=== PATIENT | male | born 1985 | race Caucasian/White ===

== ENCOUNTER 2023-05-04 07:14 | Outpatient (OUT) | payer OTHER, SELFPAY ==
[2023-05-05 04:07] LABS: Testosterone 181 ng/dL (264-916)
== END 2023-05-04 07:15 | disposition home or self-care (01) ==
LOC: LAB 07:21
PROVIDERS: PCP Family Medicine; Visit Provider Family Medicine
DX: E29.1 Testicular hypofunction (principal)
CPT/HCPCS: 36415; 84403

== ENCOUNTER 2023-07-11 08:06 | Outpatient (OUT) | payer OTHER, SELFPAY ==
[2023-07-12 04:07] LABS: Testosterone 387 ng/dL (264-916)
== END 2023-07-11 08:07 | disposition home or self-care (01) ==
LOC: LAB 08:09
PROVIDERS: PCP Family Medicine; Visit Provider Family Medicine
DX: E29.1 Testicular hypofunction (principal)
CPT/HCPCS: 36415; 84403

== ENCOUNTER 2023-12-19 12:13 | Outpatient (OUT) | payer OTHER, SELFPAY ==
[2023-12-21 12:10] LABS: Free Testosterone(Direct) 14.2 pg/mL (8.7-25.1); Testosterone 404 ng/dL (264-916)
== END 2023-12-19 12:14 | disposition home or self-care (01) ==
LOC: LAB 12:17
PROVIDERS: PCP Family Medicine; Visit Provider Family Medicine
DX: E29.1 Testicular hypofunction (principal)
CPT/HCPCS: 36415; 84402; 84403

== ENCOUNTER 2024-02-21 07:38 | Outpatient (OUT) | payer OTHER, SELFPAY ==
[2024-02-22 04:07] LABS: Testosterone 576 ng/dL (264-916)
== END 2024-02-21 07:39 | disposition home or self-care (01) ==
LOC: LAB 07:39
PROVIDERS: PCP Family Medicine; Visit Provider Family Medicine
DX: E29.1 Testicular hypofunction (principal)
CPT/HCPCS: 36415; 84403

== ENCOUNTER 2024-04-23 08:08 | Outpatient (OUT) | payer OTHER, SELFPAY ==
--- OUTSIDE RECORDS SUMMARY | 2024-04-23 08:17 | XMS_ITS | CCD ---
Author Organization [facility] Care Team Providers Care Taker Down Name Role Phone INDIRA, DR NAVAS Admitting Unavailable JESSY, DR NAVAS Attending Unavailable HOY, DR NAVAS Consulting Unavailable HOY, DR NAVAS Primary Care Unavailable JESSY, DR NAVAS Admitting Unavailable HOY, DR NAVAS Attending Unavailable HOY, DR NAVAS Consulting Unavailable JESSY, DR NAVAS Primary Care Unavailable ZIEBER, DR TIMOTHY El Consulting Unavailable JESSY, DR NAVAS Attending Unavailable HOY, DR NAVAS Consulting Unavailable DANETTE NORTON Primary Care Unavailable JESSY, DR NAVAS Admitting Unavailable HOY, DR NAVAS Admitting Unavailable HOY, DR NAVAS Attending Unavailable CIERRADANETTE DODSON Primary Care Unavailable Problems Active Problems Problem Classification Problem Date Documented Da te Episodic/Chronic Malaise and fatigue (1 source) Other fatigue; Translations: [OTHER FATIGUE] Onset: 05-24-2022 Episodic Other aftercare (1 source) Other mcfp (current) drug therapy; Translations: [OTH SHELTER CURRENT DRUG THERAPY] Onset: 05-24-2022 Episodic Other screening for suspected conditions (not mental disorders or infectious disease) (2 sources) Encounter for screening for malignant neoplasm of colon; Translations: [Encounter for screening for malignant neoplasm of prostate] Onset: 05-24-2022 Episodic Thyroid disorders (5 sources) Hypothyroidism, unspecified; Translations: [Nontoxic single thyroid nodule] Onset: 01-11-2022 Chronic Unclassified (2 sources) CONTACT W/AND (SUSP) EXPOS COVID-19; Translations: [CONTACT W/AND (SUSP) EXPOS COVID-19] Onset: 06-27-2021 Viral infection (1 source) COVID-19; Translations: [COVID-19] Onset: 06-27-2021 Past or Other Problems Problem Classification Problem Date Documented Da te Episodic/Chronic Unclassified (1 source) CONTACT W/AND (SUSP) EXPOS COVID-19; Translations: [CONTACT W/AND (SUSP) EXPOS COVID-19] Onset: 06-10-2021 Results Test Name Value Interpretation Reference Range Facility T4 [facility] 05-24-2022 T4 [Mass/Vol] 9.9 ug/dL Normal 4.5-12.0 [facility] Comment on above: Performed By: #### T 4LC #### [facility] [address] [place] [address] Dr. Vijay Pat CBC AUTO DIFFon 05-23-2022 BASO # 0.1 103/ul Normal 0.0-0.1 [facility] Comment on above: Performed By: #### C BC #### [facility] [address] [place] [address] Dr. Vijay Pat Basophils/100 WBC (Bld) 1.1 % Normal 0.2-2.0 [facility] Comment on above: Performed By: #### C BC #### [facility] [address] [place] [address] Dr. Vijay Pat EO # 0.2 103/ul Normal 0.0-0.7 [facility] Comment on above: Performed By: #### C BC #### [facility] [address] [place] [address] Dr. Vijay Pat Eosinophils/100 WBC (Bld) 2.4 % Normal 0.9-7.0 [facility] Comment on above: Performed By: #### C BC #### [facility] [address] [place] [address] Dr. Vijay Pat Erythrocyte distribution width (RBC) [Ratio] 12.3 % Normal 11.0-15.0 [facility] Comment on above: Performed By: #### C BC #### [facility] [address] [place] [address] Dr. Vijay Pat Hematocrit (Bld) [Volume fraction] 45.2 % Normal 42.0-54.0 [facility] Comment on above: Performed By: #### C BC #### [facility] [address] [place] [address] Dr. Vijay Pat Hemoglobin (Bld) [Mass/Vol] 15.3 g/dL Normal 14.0-18.0 [facility] Comment on above: Performed By: #### C BC #### [facility] [address] [place] [address] Dr. Vijay Pat IG # 0.03 10e3/ul Normal 0.00-0.03 [facility] Comment on above: Performed By: #### C BC #### [facility] [address] [place] [address] Dr. Vijay Pat IG % 0.4 % Normal 0.0-0.5 [facility] Comment on above: Performed By: #### C BC #### [facility] [address] [place] [address] Dr. Vijay Pat LYMPH # 1.6 103/ul Normal 1.2-3.8 [facility] Comment on above: Performed By: #### C BC #### [facility] [address] [place] [address] Dr. Vijay Pat Lymphocytes/100 WBC (Bld) 22.6 % Normal 20.5-60.0 [facility] Comment on above: Performed By: #### C BC #### [facility] [address] [place] [address] Dr. Vijay Pat MANUAL DIFF REQ NO Normal [facility] Comment on above: Performed By: #### C BC #### [facility] [address] [place] [address] Dr. Vijay Pat MCH (RBC) [Entitic mass] 30.8 pg Normal 25.9-34.0 [facility] Comment on above: Performed By: #### C BC #### [facility] [address] [place] [address] Dr. Vijay Pat MCHC (RBC) [Mass/Vol] 33.8 g/dL Normal 29.9-35.2 [facility] Comment on above: Performed By: #### C BC #### [facility] [address] [place] [address] Dr. Vijay Pat MCV (RBC) [Entitic vol] 90.9 fL Normal 80.0-94.0 [facility] Comment on above: Performed By: #### C BC #### [facility] [address] [address] [address] Vijay Pat MONO # 0.8 103/ul Normal 0.3-0.8 [facility] Comment on above: Performed By: #### C BC #### [facility] [address] [address] [address] Vijay Pat Monocytes/100 WBC (Bld) 12.0 % Normal 1.7-12.0 [facility] Comment on above: Performed By: #### C BC #### [facility] [address] [place] [address] Dr. Vijay Pat NEUT # 4.3 103/ul Normal 1.4-6.5 [facility] Comment on above: Performed By: #### C BC #### [facility] [address] [place] [address] Dr. Vijay Pat Neutrophils/100 WBC (Bld) 61.5 % Normal 43.0-75.0 [facility] Comment on above: Performed By: #### C BC #### [facility] [address] [place] [address] Dr. Vijay Pat Platelet mean volume (Bld) [Entitic vol] 10.3 fL Normal 9.5-13.5 [facility] Comment on above: Performed By: #### C BC #### [facility] [address] [place] [address] Dr. Vijay Pat PLT 246 103/ul Normal 150-450 [facility] Comment on above: Performed By: #### C BC #### [facility] [address] [place] [address] Dr. Vijay Pat RBC 4.97 106/ul Normal 4.70-6.10 [facility] Comment on above: Performed By: #### C BC #### [facility] [address] [place] [address] Dr. Vijay Pat WBC 7.0 103/ul Normal 4.0-11.0 [facility] Comment on above: Performed By: #### C BC #### [facility] [address] [address] [address] Vijay Pat FREE T3on 05-23-2022 FREE T3 2.93 pg/mlL Normal 2.18-3.98 [facility] Comment on above: Performed By: #### L IPID, CMP, FT3, TSH #### [facility] [address] [address] [address] Vijay Pat GLYCOHEMOGLOBIN A1Con 2021 ADA RECOMMENDATION SEE BELOW Normal [facility] Comment on above: Result Comment: ADA RECOMMENDED LIMIT 4.0 - 6.0 ADA THERAPEUTIC TARGET < 7.0 ACTION SUGGESTED > 7.0 Performed By: #### A 1C #### [facility] [address] [place] [address] Dr. Vijay Pat Glucose [Mass/Vol] 111 mg/dL Normal [facility] Comment on above: Performed By: #### A 1C #### [facility] [address] [place] [address] Dr. Vijay Pat HbA1c (Bld) [Mass fraction] 5.5 % Normal 4.5-6.2 [facility] Comment on above: Performed By: #### A 1C #### [facility] [address] [place] [address] Dr. Vijay Pat LIPID PROFILEon 05-23-2022 CHOL-HDL RATIO NORM SEE BELOW Normal [facility] Comment on above: Result Comment: 3.3 - 4.4 LOW RISK 4.4 - 7.1 AVERAGE RISK 7.1 - 11.0 MODERATE RISK >11.0 HIGH RISK Performed By: #### L IPID, CMP, FT3, TSH #### [facility] [address] [place] [address] Dr. Vijay Pat Cholesterol [Mass/Vol] 180 mg/dL Normal <=200 [facility] Comment on above: Performed By: #### L IPID, CMP, FT3, TSH #### [facility] [address] [address] [address] Vijay Pat Cholesterol in HDL [Mass/Vol] 35 mg/dL Critically low 40-60 [facility] Comment on above: Performed By: #### L IPID, CMP, FT3, TSH #### [facility] [address] [address] [address] Vijay Pat Cholesterol in LDL [Mass/Vol] 128.4 mg/dL Normal [facility] Comment on above: Performed By: #### L IPID, CMP, FT3, TSH #### [facility] [address] [address] [address] Vijay Pat Cholesterol.total/Ch olesterol in HDL [Mass ratio] 5.1 {ratio} Normal [facility] Comment on above: Performed By: #### L IPID, CMP, FT3, TSH #### [facility] [address] [address] [address] Vijay Pat HDL NORMAL > or = 60 mg/dl - LOW CARDIOVASCULAR RISK <40 mg/dl - HIGH CARDIOVASCULAR RISK Normal [facility] Comment on above: Performed By: #### L IPID, CMP, FT3, TSH #### [facility] [address] [address] [address] Vijay Pat LDL CALC NORMAL SEE BELOW Normal [facility] Comment on above: Result Comment: <100 mg/dl OPTIMAL 100 - 129 mg/dl NEAR OR ABOVE OPTIMAL 130 - 159 mg/dl BORDERLINE HIGH 160 - 189 mg/dl HIGH >190 mg/dl VERY HIGH Performed By: #### L IPID, CMP, FT3, TSH #### [facility] [address] [address] [address] Vijay Pat Triglyceride [Mass/Vol] 83 mg/dL Normal <=150 [facility] Comment on above: Performed By: #### L IPID, CMP, FT3, TSH #### [facility] [address] [address] [address] Vijay Pat VLDL CALC 16.6 mg/dL Normal [facility] Comment on above: Performed By: #### L IPID, CMP, FT3, TSH #### [facility] [address] [address] [address] Vijay Pat PROF 14(COMP METB)on 022 Albumin [Mass/Vol] 4.1 g/dL Normal 3.4-5.0 [facility] Comment on above: Performed By: #### L IPID, CMP, FT3, TSH #### [facility] [address] [place] [address] Dr. Vijay Pat Albumin/Globulin [Mass ratio] 1.1 {ratio} Normal [facility] Comment on above: Performed By: #### L IPID, CMP, FT3, TSH #### [facility] [address] [place] [address] Dr. Vijay Pat ALP [Catalytic activity/Vol] 83 U/L Normal 46-116 [facility] Comment on above: Performed By: #### L IPID, CMP, FT3, TSH #### [facility] [address] [place] [address] Dr. Vijay Pat ALT [Catalytic activity/Vol] 41 U/L Normal 16-63 [facility] Comment on above: Performed By: #### L IPID, CMP, FT3, TSH #### [facility] [address] [place] [address] Dr. Vijay Pat Anion gap [Moles/Vol] 13.4 mmol/L Normal [facility] Comment on above: Performed By: #### L IPID, CMP, FT3, TSH #### [facility] [address] [place] [address] Dr. Vijay Pat AST [Catalytic activity/Vol] 36 U/L Normal 15-37 [facility] Comment on above: Performed By: #### L IPID, CMP, FT3, TSH #### [facility] [address] [place] [address] Dr. Vijay Pat Bilirubin [Mass/Vol] 0.3 mg/dL Normal 0.2-1.0 [facility] Comment on above: Performed By: #### L IPID, CMP, FT3, TSH #### [facility] [address] [place] [address] Dr. Vijay Pat Calcium [Mass/Vol] 8.8 mg/dL Normal 8.5-10.1 [facility] Comment on above: Performed By: #### L IPID, CMP, FT3, TSH #### [facility] [address] [place] [address] Dr. Vijay Pat Chloride [Moles/Vol] 100 mmol/L Normal 98-107 [facility] Comment on above: Performed By: #### L IPID, CMP, FT3, TSH #### [facility] [address] [place] [address] Dr. Vijay Pat CO2 [Moles/Vol] 26.8 mmol/L Normal 21.0-32.0 [facility] Comment on above: Performed By: #### L IPID, CMP, FT3, TSH #### [facility] [address] [place] [address] Dr. Vijay Pat Creatinine [Mass/Vol] 1.05 mg/dL Normal 0.70-1.30 [facility] Comment on above: Performed By: #### L IPID, CMP, FT3, TSH #### [facility] [address] [place] [address] Dr. Vijay Pat EGFR-AF IRANIAN >60 Normal >=60 [facility] Comment on above: Performed By: #### L IPID, CMP, FT3, TSH #### [facility] [address] [place] [address] Dr. Vijay Pat EGFR-NON AF IRANIAN >60 Normal >=60 [facility] Comment on above: Performed By: #### L IPID, CMP, FT3, TSH #### [facility] [address] [place] [address] Dr. Vijay Pat Globulin (S) [Mass/Vol] 3.7 g/dL Normal [facility] Comment on above: Performed By: #### L IPID, CMP, FT3, TSH #### [facility] [address] [place] [address] Dr. Vijay Pat Glucose [Mass/Vol] 107 mg/dL Critically high 74-106 T [facility] Comment on above: Performed By: #### L IPID, CMP, FT3, TSH #### [facility] [address] [place] [address] Dr. Vijay Pat Potassium [Moles/Vol] 4.2 mmol/L Normal 3.5-5.1 [facility] Comment on above: Performed By: #### L IPID, CMP, FT3, TSH #### [facility] [address] [address] [address] Vijay Pat Protein [Mass/Vol] 7.8 g/dL Normal 6.4-8.2 [facility] Comment on above: Performed By: #### L IPID, CMP, FT3, TSH #### [facility] [address] [address] [address] Vijay Pat Sodium [Moles/Vol] 136 mmol/L Normal 136-145 [facility] Comment on above: Performed By: #### L IPID, CMP, FT3, TSH #### [facility] [address] [place] [address] Dr. Vijay Pat Urea nitrogen [Mass/Vol] 19.0 mg/dL Critically high 7.0-18.0 [facility] Comment on above: Performed By: #### L IPID, CMP, FT3, TSH #### [facility] [address] [address] [address] Vijay Pat Urea nitrogen/Creatinine [Mass ratio] 18.1 mg/mg Normal [facility] Comment on above: Performed By: #### L IPID, CMP, FT3, TSH #### [facility] [address] [address] [address] Vijay Pat TSHon 05-23-2022 TSH 1.295 uIU/mL Normal 0.358-3.740 [facility] Comment on above: Performed By: #### L IPID, CMP, FT3, TSH #### [facility] [address] [address] [address] Vijay Pat US THYROIDon 01-11-2022 US THYROID EXAMINATION: US THYROID HISTORY: Uninodular goiter COMPARISON: Ultrasound thyroid 01/19/2021 FINDINGS: RIGHT LOBE: Heterogeneous echotexture. Lobe size: 5.0 x 1.9 x 1.5 cm LEFT LOBE: Heterogeneous echotexture containing a 6 mm TR 3 nodule within the mid body. Lobe size: 4.2 x 2.0 x 1.3 cm. ISTHMUS: Heterogeneous echotexture and prominent thickening. Stable 5 mm TR 4 nodule left margin. Thickness: 7 mm IMPRESSION: 1. Heterogeneous thyroid gland with stable small left lobe and isthmus nodule; present since at least 2017. TR 4: The [employer] TI-RADS committee's white paper recommendations for thyroid lesions classified as TR4 (moderately suspicious) are listed below: > 1.0 cm. Follow-up ultrasound in 1, 2, 3, and 5 years. > 1.5 cm. FNA. J. Am Geovany Radiol 2017;14:587-595. TR 3: The [employer] TI-RADS committee's white paper recommendations for thyroid lesions classified as TR3 (mildly suspicious) are listed below: > 1.5 cm. Follow-up ultrasound in 1, 3, and 5 years. > 2.5 cm. FNA. J. [employer] Radiol 2017;14:587-595. Electronically authenticated by: TIMOTHY MCGINNIS Date: 2022-01-11 16:25 Normal [facility] Covid-19 PCR (CVDTBH)on 05-26 SARS-CoV-2 (COVID-19) RNA KIMBERLY+probe Ql (Unsp spec) Detected Critically abnormal NOT DETECTED [facility] Comment on above: Result Comment: This test is not yet approved or cleared by the [place] FDA. When there are no FDA-approved or cleared tests available, and other criteria are met, FDA can make tests available under an emergency access mechanism called an Emergency Use Authorization (EUA). The EUA for this test is supported by the [place] of Health and Human Service's (HHS's) declaration that circumstances exist to justify the emergency use of in vitro diagnostics for the detection and/or diagnosis of the virus that causes COVID-19. This EUA will remain in effect (meaning this test can be used) for the duration of the COVID-19 declaration justifying emergency of IVDs, unless it is terminated or revoked by FDA (after which the test may no longer be used). Performed By: #### C VDTB, CVDAGS #### [facility] [address] [place] [address] Dr. Vijay Pat SYMPTOMATIC COVID-19 ANTIGEN on 06-10-2021 EUA Statement SEE BELOW Normal [facility] Comment on above: Result Comment: This test has not been FDA cleared or approved, but has been authorized by the FDA under an Emergency Use Authorization (EUA) for use by authorized laboratories certified under CLIA that meet the requirements to perform moderate or high complexity testing. This test has been authorized only for the detection of proteins from SARS-CoV-2, not for any other viruses or pathogens. The emergency use of this test is authorized for the duration of the declaration that circumstances exist justifying the authorization of emergency use of in vitro diagnostic tests for detection and/or diagnosis of Covid-19 under section 564(b)(1) of the Act, 21 U.S.C. 360bbb-3(b)(1), unless the declaration is terminated or authorization is revoked sooner. Performed By: #### C VDTBRiley, CVDAGS #### [facility] [address] [place] [address] Dr. Vijay Pat SARS-CoV-2 (COVID-19) RNA KIMBERLY+probe Ql (Unsp spec) Positive Critically abnormal NEGATIVE [facility] Comment on above: Result Comment: CONF IRMATION BY PCR PENDING PER CDC GUIDELINES/ SYMPTOMATIC PATIENT. Previously reported as: NEGATIVE On 06/10/2021 14:38 By [email or web address] Performed By: #### C VDTBH, CVDAGS #### [facility] [address] [address] [address] Vijay Pat Encounters Encounter Date Encounter Type Care Provider Facility Start: 05-24-2022 Encounter for genera l adult medical examination without abnormal findings DR YOSEF JACOBSON [facility] Start: 05-23-2022 End: 05-24-[address] YOSEF JACOBSON Facility:[facility] Start: 05-23-2022 End: 05-24-2022 Encounter for general adult medical examination without abnormal findings DR YOSEF JACOBSON Facility:[facility] Start: 01-14-[address] YOSEF JACOBSON Facility :[facility] Start: 01-11-2022 End: 01-12-[address] YOSEF JACOBSON Facility:[facility] Start: 06-10-2021 End: 09-16-[address] YOSEF JACOBSON Facility:[facility] Procedures Date Procedure Procedure Detail Performing Clinician Start: 05-23-[address] RENETTA JACOBSON Comment on above: Performed By: #### L IPID, CMP, FT3, TSH #### [facility] [id number] Vijay Pat Payers Date Payer Category Payer Unknown [id number] 2.16.84 [id number] 1984 Unknown [id number] 2.16.84 [id number] 1984 Unknown [id number] 2.16.84 [id number] 1984 Unknown [id number] 2.16.84 [id number] 1960 Private Health Insurance [id number] 1960 Self-pay [id number] 1960 Unknown [id number] Summary Purpose Family History No Family History Records Found Advance Directives No Advanced Directives Records Found Additional Source Comments (unrecognized sect ion and content) No Status Records Found INFORMATION SOURCE (unrecogn ized section and content) DATE CREATED AUTHOR 05/25/2022 [facility] FOR RECORDS PERTAINING TO PATIENTS WHO ARE OR HAVE BEEN ENROLLED IN A CHEMICAL DEPENDENCY/SUBSTANCEABUSE PROGRAM, SOME INFORMATION MAY BE OMITTED. This clinical summary was aggregated from multiple sources. Caution should be exercised in using it in the provision of clinical care. This summary normalizes information from multiple sources, and as a consequence, information in this document may materially change the coding, format and clinical context of patient data. In addition, data may be omitted in some cases. CLINICAL DECISIONS SHOULD BE BASED ON THE PRIMARY CLINICAL RECORDS. [employer] provides no warranty or guarantee of the accuracy or completeness of information in this document.
[2024-04-23 08:54] LABS: Basophils Absolute Auto 0.1 10^3/uL (0.0-0.1); Basophils Percent Auto 1.2 % (0.2-2.0); Eosinophils Absolute Auto 0.1 10^3/uL (0.0-0.7); Hematocrit 51.8 % (42.0-54.0); Hemoglobin 17.5 g/dL (14.0-18.0); Immature Granulocytes Abs Auto 0.06 10^3/uL (0.00-0.03); Immature Granulocytes Pct Auto 0.8 % (0.0-0.5); Lymphocytes Absolute Auto 1.4 10^3/uL (1.2-3.8); Lymphocytes Percent Auto 17.4 % (20.5-60.0); Mean Corpuscular HGB Conc 33.8 g/dL (29.9-35.2); Mean Corpuscular Volume 91.7 fL (80.0-94.0); Monocytes Absolute Auto 0.8 10^3/uL (0.3-0.8); Monocytes Percent Auto 10.1 % (1.7-12.0); Neutrophils Absolute Auto 5.4 10^3/uL (1.4-6.5); Neutrophils Percent Auto 69.5 % (43.0-75.0); Platelet Count 252 10^3/uL (150-450); Red Blood Count 5.65 10^6/uL (4.70-6.10); Red Cell Distribution Width 13.3 % (11.0-15.0); White Blood Count 7.8 10^3/uL (4.0-11.0)
[2024-04-23 09:20] LABS: Estimated Average Glucose 100 mg/dL; Glycohemoglobin A1C 5.1 % (4.5-6.2)
[2024-04-23 09:36] LABS: Alanine Aminotransferase 54 U/L (16-63); Albumin Globulin Ratio 1.1; Alkaline Phosphatase 66 U/L (46-116); Anion Gap 12.2; Aspartate Amino Transferase 48 U/L (15-37); BUN Creatinine Ratio 13.9; Bilirubin Total 0.8 mg/dL (0.2-1.0); Carbon Dioxide 26.8 mmol/L (21.0-32.0); Chloride 99 mmol/L (98-107); Chol HDL Ratio 4.1; Cholesterol 151 mg/dL (<=200); Estimated GFR (African America >60 (>=60); Estimated GFR (Non-African Ame >60 (>=60); Free T3 2.79 pg/mL (2.18-3.98); Free T4 1.12 ng/dL (0.76-1.46); Globulin 3.5 g/dL; Glucose 95 mg/dL (74-106); HDL Cholesterol 37 mg/dL (40-60); Sodium 134 mmol/L (136-145); Thyroid Stimulating Hormone 2.157 uIU/mL (0.358-3.740); Total Protein 7.5 g/dL (6.4-8.2); Triglycerides 93 mg/dL (<=150); VLDL CHOLESTEROL 18.6 mg/dL
== END 2024-04-23 08:09 | disposition home or self-care (01) ==
LOC: LAB 08:08
PROVIDERS: PCP Family Medicine; Visit Provider Family Medicine
DX: Z00.00 Encounter for general adult medical examination without abnormal findings (principal); E03.9 Hypothyroidism, unspecified; I10 Essential (primary) hypertension
CPT/HCPCS: 36415; 80053; 80061; 83036; 84439; 84443; 84481; 85025

== ENCOUNTER 2024-08-27 08:31 | Outpatient (OUT) | payer OTHER, SELFPAY ==
--- OUTSIDE RECORDS SUMMARY | 2024-08-27 08:51 | XMS_ITS | CCD ---
Author Organization [facility] Care Team Providers Care Diving Fisher Name Role Phone INDIRA, DR NAVAS Admitting Unavailable HOY, DR NAVAS Attending Unavailable HOY, DR NAVAS Consulting Unavailable HOY, DR NAVAS Primary Care Unavailable HOY, DR NAVAS Admitting Unavailable HOY, DR NAVAS Attending Unavailable HOY, DR NAVAS Consulting Unavailable JESSY, DR NAVAS Primary Care Unavailable ZIEBER, DR TIMOTHY El Consulting Unavailable JESSY, DR NAVAS Attending Unavailable HOY, DR NAVAS Consulting Unavailable CIERRADANETTE DODSON Primary Care Unavailable JESSY, DR NAVAS Admitting Unavailable HOY, DR NAVAS Admitting Unavailable HOY, DR NAVAS Attending Unavailable CIERRADANETTE DODSON Primary Care Unavailable Solomon CRONIN Attending Unavailable Solomon CRONIN Attending Unavailable Yosef Jacobson Referring Unavailable Problems Active Problems Problem Classification Problem Date Documented Da te Episodic/Chronic Malaise and fatigue (1 source) Other fatigue; Translations: [OTHER FATIGUE] Onset: 05-24-2022 Episodic Other aftercare (1 source) Other fdc (current) drug therapy; Translations: [OTH USP CURRENT DRUG THERAPY] Onset: 05-24-2022 Episodic Other [...] 05-24-2022 T4 [Mass/Vol] 9.9 ug/dL Normal 4.5-12.0 [facility] Comment on above: Performed By: #### T 4LC #### [facility] [address] [place] [address] Dr. Vijay Pat CBC AUTO DIFFon 05-23-2022 BASO # 0.1 103/ul Normal 0.0-0.1 [facility] Comment on above: Performed By: #### C BC #### [facility] [address] [place] [address] Dr. Vijay Pat Basophils/100 WBC (Bld) 1.1 % Normal 0.2-2.0 [facility] Comment on above: Performed By: #### C BC #### [facility] [address] [place] [address] Dr. Vijay Pat EO # 0.2 103/ul Normal 0.0-0.7 [facility] Comment on above: Performed By: #### C BC #### [facility] [address] [place] [address] Dr. Vijay Pat Eosinophils/100 WBC (Bld) 2.4 % Normal 0.9-7.0 [facility] Comment on above: Performed By: #### C BC #### [facility] [address] [place] [address] Dr. Vijay Pat Erythrocyte distribution width (RBC) [Ratio] 12.3 % Normal 11.0-15.0 [facility] Comment on above: Performed By: #### C BC #### [facility] [address] [place] [address] Dr. Vijay Pat Hematocrit (Bld) [Volume fraction] 45.2 % Normal 42.0-54.0 [facility] Comment on above: Performed By: #### C BC #### [facility] [address] [place] [address] Dr. Vijay aPt Hemoglobin (Bld) [Mass/Vol] 15.3 g/dL Normal 14.0-18.0 [facility] Comment on above: Performed By: #### C BC #### [facility] [address] [place] [address] Dr. Vijay Pat IG # 0.03 10e3/ul Normal 0.00-0.03 [facility] Comment on above: Performed By: #### C BC #### [facility] [address] [place] [address] Dr. Vijay Pat IG % 0.4 % Normal 0.0-0.5 [facility] Comment on above: Performed By: #### C BC #### [facility] [address] [place] [address] Dr. Vijay Pat LYMPH # 1.6 103/ul Normal 1.2-3.8 [facility] Comment on above: Performed By: #### C BC #### [facility] [address] [place] [address] Dr. Vijay Pat Lymphocytes/100 WBC (Bld) 22.6 % Normal 20.5-60.0 [facility] Comment on above: Performed By: #### C BC #### [facility] [address] [place] [address] Dr. Vijay Pat MANUAL DIFF REQ NO Normal [facility] Comment on above: Performed By: #### C BC #### [facility] [address] [place] [address] Dr. Vijay Pat MCH (RBC) [Entitic mass] 30.8 pg Normal 25.9-34.0 [facility] Comment on above: Performed By: #### C BC #### [facility] [address] [place] [address] Dr. Vijay Pat MCHC (RBC) [Mass/Vol] 33.8 g/dL Normal 29.9-35.2 [facility] Comment on above: Performed By: #### C BC #### [facility] [address] [place] [address] Dr. Vijay Pat MCV (RBC) [Entitic vol] 90.9 fL Normal 80.0-94.0 [facility] Comment on above: Performed By: #### C BC #### [facility] [address] [place] [address] Dr. Vijay Pat MONO # 0.8 103/ul Normal 0.3-0.8 [facility] Comment on above: Performed By: #### C BC #### [facility] [address] [place] [address] Dr. Vijay Pat Monocytes/100 WBC (Bld) 12.0 % Normal 1.7-12.0 [facility] Comment on above: Performed By: #### C BC #### [facility] [address] [place] [address] Dr. Vijay Pat NEUT # 4.3 103/ul Normal 1.4-6.5 [facility] Comment on above: Performed By: #### C BC #### [facility] [address] [place] [address] Dr. Vijay Pat Neutrophils/100 WBC (Bld) 61.5 % Normal 43.0-75.0 [facility] Comment on above: Performed By: #### C BC #### [facility] [address] [place] [address] Dr. Vijay Pat Platelet mean volume (Bld) [Entitic vol] 10.3 fL Normal 9.5-13.5 [facility] Comment on above: Performed By: #### C BC #### [facility] [address] [place] [address] Dr. Vijay Pat PLT 246 103/ul Normal 150-450 [facility] Comment on above: Performed By: #### C BC #### [facility] [address] [place] [address] Dr. Vijay Pat RBC 4.97 106/ul Normal 4.70-6.10 [facility] Comment on above: Performed By: #### C BC #### [facility] [address] [place] [address] Dr. Vijay Pat WBC 7.0 103/ul Normal 4.0-11.0 [facility] Comment on above: Performed By: #### C BC #### [facility] [address] [address] [address] Vijay Pat FREE T3on 05-23-2022 FREE T3 2.93 pg/mlL Normal 2.18-3.98 [facility] Comment on above: Performed By: #### L IPID, CMP, FT3, TSH #### [facility] [address] [address] [address] Vijay Pat GLYCOHEMOGLOBIN A1Con 2021 ADA RECOMMENDATION SEE BELOW Normal [facility] Comment on above: Result Comment: ADA RECOMMENDED LIMIT 4.0 - 6.0 ADA THERAPEUTIC TARGET < 7.0 ACTION SUGGESTED > 7.0 Performed By: #### A 1C #### [facility] [address] [place] [address] Dr. Vijay Pat Glucose [Mass/Vol] 111 mg/dL Normal [facility] Comment on above: Performed By: #### A 1C #### [facility] [address] [address] [address] Vijay Pat HbA1c (Bld) [Mass fraction] 5.5 % Normal 4.5-6.2 [facility] Comment on above: Performed By: #### A 1C #### [facility] [address] [place] [address] Dr. Vijay Pat LIPID PROFILEon 05-23-2022 CHOL-HDL RATIO NORM SEE BELOW Normal [facility] Comment on above: Result Comment: 3.3 - 4.4 LOW RISK 4.4 - 7.1 AVERAGE RISK 7.1 - 11.0 MODERATE RISK >11.0 HIGH RISK Performed By: #### L IPID, CMP, FT3, TSH #### [facility] [address] [address] [address] Vijay Pat Cholesterol [Mass/Vol] 180 mg/dL Normal <=200 [facility] Comment on above: Performed By: #### L IPID, CMP, FT3, TSH #### [facility] [address] [address] [address] Vijay Pat Cholesterol in HDL [Mass/Vol] 35 mg/dL Critically low 40-60 [facility] Comment on above: Performed By: #### L IPID, CMP, FT3, TSH #### [facility] [address] [address] [address] Vijay Pat Cholesterol in LDL [Mass/Vol] 128.4 mg/dL Normal [facility] Comment on above: Performed By: #### L IPID, CMP, FT3, TSH #### [facility] [address] [address] [address] Vijay Pat Cholesterol.total/Ch olesterol in HDL [Mass ratio] 5.1 {ratio} Normal [facility] Comment on above: Performed By: #### L IPID, CMP, FT3, TSH #### [facility] [address] [place] [address] Dr. Vijay Pat HDL NORMAL > or = 60 mg/dl - LOW CARDIOVASCULAR RISK <40 mg/dl - HIGH CARDIOVASCULAR RISK Normal [facility] Comment on above: Performed By: #### L IPID, CMP, FT3, TSH #### [facility] [address] [place] [address] Dr. Vijay Pat LDL CALC NORMAL SEE BELOW Normal [facility] Comment on above: Result Comment: <100 mg/dl OPTIMAL 100 - 129 mg/dl NEAR OR ABOVE OPTIMAL 130 - 159 mg/dl BORDERLINE HIGH 160 - 189 mg/dl HIGH >190 mg/dl VERY HIGH Performed By: #### L IPID, CMP, FT3, TSH #### [facility] [address] [address] [address] Vijay Pat Triglyceride [Mass/Vol] 83 mg/dL Normal <=150 [facility] Comment on above: Performed By: #### L IPID, CMP, FT3, TSH #### [facility] [address] [place] [address] Dr. Vijay Pat VLDL CALC 16.6 mg/dL Normal [facility] Comment on above: Performed By: #### L IPID, CMP, FT3, TSH #### [facility] [address] [place] [address] Dr. Vijay Pat PROF 14(COMP METB)on 022 Albumin [Mass/Vol] 4.1 g/dL Normal 3.4-5.0 [facility] Comment on above: Performed By: #### L IPID, CMP, FT3, TSH #### [facility] [address] [address] [address] Vijay Pat Albumin/Globulin [Mass ratio] 1.1 {ratio} Normal [facility] Comment on above: Performed By: #### L IPID, CMP, FT3, TSH #### [facility] [address] [address] [address] Vijay Pat ALP [Catalytic activity/Vol] 83 U/L Normal 46-116 [facility] Comment on above: Performed By: #### L IPID, CMP, FT3, TSH #### [facility] [address] [place] [address] Dr. Vijay Pat ALT [Catalytic activity/Vol] 41 U/L Normal 16-63 [facility] Comment on above: Performed By: #### L IPID, CMP, FT3, TSH #### [facility] [address] [address] [address] Vijay Pat Anion gap [Moles/Vol] 13.4 mmol/L Normal [facility] Comment on above: Performed By: #### L IPID, CMP, FT3, TSH #### [facility] [address] [place] [address] Dr. Vijay Pat AST [Catalytic activity/Vol] 36 U/L Normal 15-37 [facility] Comment on above: Performed By: #### L IPID, CMP, FT3, TSH #### [facility] [address] [address] [address] Vijay Pat Bilirubin [Mass/Vol] 0.3 mg/dL Normal 0.2-1.0 [facility] Comment on above: Performed By: #### L IPID, CMP, FT3, TSH #### [facility] [address] [address] [address] Vijay Pat Calcium [Mass/Vol] 8.8 mg/dL Normal 8.5-10.1 [facility] Comment on above: Performed By: #### L IPID, CMP, FT3, TSH #### [facility] [address] [address] [address] Vijay Pat Chloride [Moles/Vol] 100 mmol/L Normal 98-107 [facility] Comment on above: Performed By: #### L IPID, CMP, FT3, TSH #### [facility] [address] [place] [address] Dr. Vijay Pat CO2 [Moles/Vol] 26.8 mmol/L Normal 21.0-32.0 [facility] Comment on above: Performed By: #### L IPID, CMP, FT3, TSH #### [facility] [address] [place] [address] Dr. Vijay Pat Creatinine [Mass/Vol] 1.05 mg/dL Normal 0.70-1.30 [facility] Comment on above: Performed By: #### L IPID, CMP, FT3, TSH #### [facility] [address] [place] [address] Dr. Vijay Pat EGFR-AF MOZAMBICAN >60 Normal >=60 [facility] Comment on above: Performed By: #### L IPID, CMP, FT3, TSH #### [facility] [address] [place] [address] Dr. Viajy Pat EGFR-NON AF MOZAMBICAN >60 Normal >=60 [facility] Comment on above: Performed By: #### L IPID, CMP, FT3, TSH #### [facility] [address] [place] [address] Dr. Vijay Pat Globulin (S) [Mass/Vol] 3.7 g/dL Normal [facility] Comment on above: Performed By: #### L IPID, CMP, FT3, TSH #### [facility] [address] [place] [address] Dr. Vijay Pat Glucose [Mass/Vol] 107 mg/dL Critically high 74-106 [facility] Comment on above: Performed By: #### L IPID, CMP, FT3, TSH #### [facility] [address] [address] [address] Vijay Pat Potassium [Moles/Vol] 4.2 mmol/L Normal 3.5-5.1 [facility] Comment on above: Performed By: #### L IPID, CMP, FT3, TSH #### [facility] [address] [place] [address] Dr. Vijay Pat Protein [Mass/Vol] 7.8 g/dL Normal 6.4-8.2 [facility] Comment on above: Performed By: #### L IPID, CMP, FT3, TSH #### [facility] [address] [place] [address] Dr. Vijay Pat Sodium [Moles/Vol] 136 mmol/L Normal 136-145 [facility] Comment on above: Performed By: #### L IPID, CMP, FT3, TSH #### [facility] [address] [place] [address] Dr. Vijay Pat Urea nitrogen [Mass/Vol] 19.0 mg/dL Critically high 7.0-18.0 [facility] Comment on above: Performed By: #### L IPID, CMP, FT3, TSH #### [facility] [address] [place] [address] Dr. Vijay Pat Urea nitrogen/Creatinine [Mass ratio] 18.1 mg/mg Normal [facility] Comment on above: Performed By: #### L IPID, CMP, FT3, TSH #### [facility] [address] [place] [address] Dr. Vijay Pat TSHon 05-23-2022 TSH 1.295 uIU/mL Normal 0.358-3.740 [facility] Comment on above: Performed By: #### L IPID, CMP, FT3, TSH #### [facility] [address] [place] [address] Dr. Vijay Pat US THYROIDon 01-11-2022 US [...] since at least 2017. TR 4: The [employer] TI-RADS committee's white paper recommendations for thyroid lesions classified as TR4 (moderately suspicious) are listed below: > 1.0 cm. Follow-up ultrasound in 1, 2, 3, and 5 years. > 1.5 cm. FNA. J. Am Geovany Radiol 2017;14:587-595. TR 3: The [employer] TI-RADS committee's white paper recommendations for thyroid lesions classified as TR3 (mildly suspicious) are listed below: > 1.5 cm. Follow-up ultrasound in 1, 3, and 5 years. > 2.5 cm. FNA. J. Am Geovany Radiol 2017;14:587-595. Electronically authenticated by: TIMOTHY MCGINNIS Date: 2022-01-11 16:25 Normal [facility] Covid-19 PCR (CVDTBH)on 05-26 SARS-CoV-2 (COVID-19) RNA KIMBERLY+probe Ql (Unsp spec) Detected Critically abnormal NOT DETECTED [facility] Comment on above: Result Comment: This test is not yet approved or cleared by the [place] FDA. When there are no FDA-approved or cleared tests available, and other criteria are met, FDA can make tests available under an emergency access mechanism called an Emergency Use Authorization (EUA). The EUA for this test is supported by the [place] of Health and Human Service's (HHS's) declaration [...] Performed By: #### C VDTB, CVDAGS #### [facility] [address] [address] [address] Vijay Pat SYMPTOMATIC COVID-19 ANTIGEN on 06-10-2021 EUA Statement SEE BELOW Normal [facility] Comment on above: Result Comment: This [...] is revoked sooner. Performed By: #### C JENELLE, ANKUSH #### [facility] [address] [place] [address] Dr. Vijay Pat SARS-CoV-2 (COVID-19) RNA KIMBERLY+probe Ql (Unsp spec) Positive Critically abnormal NEGATIVE [facility] Comment on above: Result Comment: CONF IRMATION BY PCR PENDING PER CDC GUIDELINES/ SYMPTOMATIC PATIENT. Previously reported as: NEGATIVE On 06/10/2021 14:38 By [email or web address] Performed By: #### C JENELLE, JEREMYS #### [facility] [address] [address] [address] Vijay Pat Encounters Encounter Date Encounter Type Care Provider Facility Start: 09-30-2024 ambulatory Solomon CRONIN Facili ty:[facility] Start: 08-12-2024 End: 08-12-2024 ambulatory Solomon CRONIN Facility:[facility] Start: 08-12-2024 End: 08-12-2024 Patient encounter procedure Solomon CRONIN [facility] Start: 07-03-2024 ambulatory Solomon CRONIN Facility :[facility] Start: 05-24-2022 Encounter for genera l adult medical examination without abnormal findings DR YOSEF JACOBSON [facility] Start: 05-23-2022 End: 05-24-[address] YOSEF JACOBSON Facility:[facility] Start: 05-23-2022 End: 05-24-2022 Encounter for general adult medical examination without abnormal findings DR YOSEF JACOBSON Facility:[facility] Start: 01-14-[address] YOSEF JACOBSON Facility :[facility] Start: 01-11-2022 End: 01-12-[address] YOSEF JACOBSON Facility:[facility] Start: 06-10-2021 End: 06-10-[address] YOSEF JACOBSON Facility:[facility] Procedures Date Procedure Procedure Detail Performing Clinician Start: 05-23-[address] RENETTA JACOBSON Comment on above: Performed By: #### L IPID, CMP, FT3, TSH #### [facility] [address] [address] [address] Vijay Pat Payers Date Payer Category Payer Unknown [id number] 2.16.84 [id number] 1984 Unknown [id number] 2.16.84 [id number] 1984 Unknown [id number] 2.16.84 [id number] 1984 Unknown [id number] 2.16.84 [id number] 1960 Private Health Insurance [id number] 1960 Self-pay [id number] 1960 Unknown [id number] Social History Date Type Detail Facility Tobacco smoking status No Smoking Status Entered [facility] Sex Assigned At Male [facility] Discharge instructions 07-03-2024 Note Date & Type Note Facility 07-03-2024 Hospital Discharg e instructions Follow Up Care 07/03/2024 15:50:59 With:ROSEANNE GUTIERREZ, Solomon El, URL Address: [facility] [address], [place] [phone] When: Unknown [facility] Evaluation + Plan note Note Date & Type Note Facility Evaluation + Plan note No data available for this section [facility] Progress note Note Date & Type Note Facility Progress note No data available for this section [facility] Summary Purpose Family History No Family History Records Found No data available for this section No Family History Records Found Advance Directives No Advanced Directives Records FoundNo Advanced Directives Records Found Additional Source Comments (unrecognized sect ion and content) No Status Records FoundNo Status Records Found INFORMATION SOURCE (unrecogn ized section and content) DATE CREATED AUTHOR 05/25/2022 [facility] DATE CREATED AUTHOR AUTHOR'S ORGANIZ ATION 08/15/2024 [facility] FOR RECORDS PERTAINING TO PATIENTS WHO [...] BE BASED ON THE PRIMARY CLINICAL RECORDS. [facility] [employer] [facility]. provides no warranty or guarantee of the accuracy or completeness of information in this document.
== END 2024-08-27 08:32 | disposition home or self-care (01) ==
LOC: LAB 08:34
PROVIDERS: PCP Family Medicine; Visit Provider Family Medicine
DX: E29.1 Testicular hypofunction (principal)
CPT/HCPCS: 36415; 84402; 84403

== ENCOUNTER 2025-02-04 08:21 | Outpatient (OUT) | payer OTHER, SELFPAY ==
--- OUTSIDE RECORDS SUMMARY | 2025-02-04 08:30 | XMS_ITS | CCD ---
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 Role Phone INDIRA, DR NAVAS Admitting Unavailable HOY, DR NAVAS Attending Unavailable HOY, DR NAVAS Consulting Unavailable HOY, DR NAVAS Primary Care Unavailable HOY, DR NAVAS Admitting Unavailable HOY, DR NAVAS Attending Unavailable HOY, DR NAVAS Consulting Unavailable HOY, DR NAVAS Primary Care Unavailable ZIEBER, DR TIMOTHY El Consulting Unavailable HOY, DR NAVAS Attending Unavailable HOY, DR NAVAS Consulting Unavailable CIERRADANETTE Primary Care Unavailable HOY, DR NAVAS Admitting Unavailable HOY, DR NAVAS Admitting Unavailable HOY, DR NAVAS Attending Unavailable CIERRADANETTE Primary Care Unavailable Yosef Jacobson Referring Unavailable Solomon CRONIN Attending Unavailable Solomon CRONIN Attending Unavailable Problems Active Problems Problem Classification Problem Date Documented Da te Episodic/Chronic Malaise and fatigue (1 source) Other fatigue; Translations: [OTHER FATIGUE] Onset: 05-24-2022 Episodic Other aftercare (1 source) Other group home (current) drug therapy; Translations: [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 [address] [place] [address] Dr. Vijay Pat CBC AUTO DIFFon 05-23-2022 BASO # 0.1 103/ul Normal 0.0-0.1 [facility] Comment on above: Performed By: #### C BC #### [facility] [address] [place] [address] Dr. Vijay Pat Basophils/100 WBC (Bld) 1.1 % Normal 0.2-2.0 [facility] Comment on above: Performed By: #### C BC #### [facility] [address] [place] [address] Dr. Vijay Pat EO # 0.2 103/ul Normal 0.0-0.[address] [facility] Comment on above: Performed By: #### C BC #### [facility] [address] [place] [address] Dr. Vijay Pat Eosinophils/100 WBC (Bld) 2.4 % Normal 0.9-7.[address] [facility] Comment on above: Performed By: #### C BC #### [facility] [address] [place] [address] Dr. Vijay Pat Erythrocyte distribution width (RBC) [Ratio] 12.3 % Normal 11.0-15.[address] [facility] Comment on above: Performed By: #### C BC #### [facility] [address] [place] [address] Dr. Vijay Pat Hematocrit (Bld) [Volume fraction] 45.2 % Normal 42.0-54.0 [facility] Comment on above: Performed By: #### C BC #### [facility] [address] [place] [address] Dr. Vijay Pat Hemoglobin (Bld) [Mass/Vol] 15.3 g/dL Normal 14.0-18.[address] [facility] Comment on above: Performed By: #### C BC #### [facility] [address] [place] [address] Dr. Vijay Pat IG # 0.03 10e3/ul Normal 0.00-0.03 [facility] Comment on above: Performed By: #### C BC #### [facility] [address] [place] [address] Dr. Vijay Pat IG % 0.4 % Normal 0.0-0.5 [facility] Comment on above: Performed By: #### C BC #### [facility] [address] [place] [address] Dr. Vijay Pat LYMPH # 1.6 103/ul Normal 1.2-3.[address] [facility] Comment on above: Performed By: #### C BC #### [facility] [address] [place] [address] Dr. Vijay Pat Lymphocytes/100 WBC (Bld) 22.6 % Normal 20.5-60.0 [facility] Comment on above: Performed By: #### C BC #### [facility] [address] [place] [address] Dr. Vijay Pat MANUAL DIFF REQ NO Normal [facility] Comment on above: Performed By: #### C BC #### [facility] [address] [place] [address] Dr. Vijay Pat MCH (RBC) [Entitic mass] 30.8 pg Normal 25.9-34.[address] [facility] Comment on above: Performed By: #### C BC #### [facility] [address] [place] [address] Dr. Vijay Pat MCHC (RBC) [Mass/Vol] 33.8 g/dL Normal 29.9-35.[address] [facility] Comment on above: Performed By: #### C BC #### [facility] [address] [place] [address] Dr. Vijay Pat MCV (RBC) [Entitic vol] 90.9 fL Normal 80.0-94.0 [facility] Comment on above: Performed By: #### C BC #### [facility] [address] [place] [address] Dr. Vijay Pat MONO # 0.8 103/ul Normal 0.3-0.[address] [facility] Comment on above: Performed By: #### C BC #### [facility] [address] [place] [address] Dr. Vijay Pat Monocytes/100 WBC (Bld) 12.0 % Normal 1.7-12.0 [facility] Comment on above: Performed By: #### C BC #### [facility] [address] [place] [address] Dr. Vijay Pat NEUT # 4.3 103/ul Normal 1.4-6.5 [facility] Comment on above: Performed By: #### C BC #### [facility] [address] [place] [address] Dr. Vijay Pat Neutrophils/100 WBC (Bld) 61.5 % Normal 43.0-75.0 [facility] Comment on above: Performed By: #### C BC #### [facility] [address] [place] [address] Dr. Vijay Pat Platelet mean volume (Bld) [Entitic vol] 10.3 fL Normal 9.5-13.[address] [facility] Comment on above: Performed By: #### C BC #### [facility] [address] [place] [address] Dr. Vijay Pat PLT 246 103/ul Normal 150-[address] [facility] Comment on above: Performed By: #### C BC #### [facility] [address] [place] [address] Dr. Vijay Pat RBC 4.97 106/ul Normal 4.70-6.[address] [facility] Comment on above: Performed By: #### C BC #### [facility] [address] [place] [address] Dr. Vijay Pat WBC 7.0 103/ul Normal 4.0-11.0 [facility] Comment on above: Performed By: #### C BC #### [facility] [address] [address] [address] Vijay Pat FREE T3on 05-23-2022 FREE T3 2.93 pg/mlL Normal 2.18-3.98 [facility] Comment on above: Performed By: #### L IPID, CMP, FT3, TSH #### [facility] [address] [address] [address] Vijay Pat GLYCOHEMOGLOBIN A1Con 2021 ADA RECOMMENDATION SEE BELOW Normal [facility] Comment on above: Result Comment: ADA RECOMMENDED LIMIT 4.0 - 6.0 ADA THERAPEUTIC TARGET < 7.0 ACTION SUGGESTED > 7.0 Performed By: #### A 1C #### [facility] [address] [place] [address] Dr. Vijay Pat Glucose [Mass/Vol] 111 mg/dL Normal [facility] Comment on above: Performed By: #### A 1C #### [facility] [address] [place] [address] Dr. Vijay Pat HbA1c (Bld) [Mass fraction] 5.5 % Normal 4.5-6.2 [facility] Comment on above: Performed By: #### A 1C #### [facility] [address] [place] [address] Dr. Vijay Pat LIPID PROFILEon 05-23-2022 CHOL-HDL RATIO NORM SEE BELOW Normal [facility] Comment on above: Result Comment: 3.3 - 4.4 LOW RISK 4.4 - 7.1 AVERAGE RISK 7.1 - 11.0 MODERATE RISK >11.0 HIGH RISK Performed By: #### L IPID, CMP, FT3, TSH #### [facility] [address] [place] [address] Dr. Vijay Pat Cholesterol [Mass/Vol] 180 mg/dL Normal <=200 [facility] Comment on above: Performed By: #### L IPID, CMP, FT3, TSH #### [facility] [address] [place] [address] Dr. Vijay Pat Cholesterol in HDL [Mass/Vol] 35 mg/dL Critically low 40-[address] [facility] Comment on above: Performed By: #### L IPID, CMP, FT3, TSH #### [facility] [address] [address] [address] Vijay Pat Cholesterol in LDL [Mass/Vol] 128.4 mg/dL Normal [facility] Comment on above: Performed By: #### L IPID, CMP, FT3, TSH #### [facility] [address] [address] [address] Vijay Pat Cholesterol.total/Ch olesterol in HDL [Mass ratio] 5.1 {ratio} Normal [facility] Comment on above: Performed By: #### L IPID, CMP, FT3, TSH #### [facility] [address] [address] [address] Vijay Pat HDL NORMAL > or = 60 mg/dl - LOW CARDIOVASCULAR RISK <40 mg/dl - HIGH CARDIOVASCULAR RISK Normal [facility] Comment on above: Performed By: #### L IPID, CMP, FT3, TSH #### [facility] [address] [address] [address] Vijay Pat LDL CALC NORMAL SEE BELOW Normal [facility] Comment on above: Result Comment: <100 mg/dl OPTIMAL 100 - 129 mg/dl NEAR OR ABOVE OPTIMAL 130 - 159 mg/dl BORDERLINE HIGH 160 - 189 mg/dl HIGH >190 mg/dl VERY HIGH Performed By: #### L IPID, CMP, FT3, TSH #### [facility] [address] [address] [address] Vijay Pat Triglyceride [Mass/Vol] 83 mg/dL Normal <=[address] [facility] Comment on above: Performed By: #### L IPID, CMP, FT3, TSH #### [facility] [address] [address] [address] Vijay Pat VLDL CALC 16.6 mg/dL Normal [facility] Comment on above: Performed By: #### L IPID, CMP, FT3, TSH #### [facility] [address] [address] [address] Vijay Pat PROF 14(COMP METB)on 022 Albumin [Mass/Vol] 4.1 g/dL Normal 3.4-5.0 [facility] Comment on above: Performed By: #### L IPID, CMP, FT3, TSH #### [facility] [address] [address] [address] Vijay Pat Albumin/Globulin [Mass ratio] 1.1 {ratio} Normal [facility] Comment on above: Performed By: #### L IPID, CMP, FT3, TSH #### [facility] [address] [place] [address] Dr. Vijay Pat ALP [Catalytic activity/Vol] 83 U/L Normal 46-116 [facility] Comment on above: Performed By: #### L IPID, CMP, FT3, TSH #### [facility] [address] [place] [address] Dr. Vijay Pat ALT [Catalytic activity/Vol] 41 U/L Normal 16-63 [facility] Comment on above: Performed By: #### L IPID, CMP, FT3, TSH #### [facility] [address] [address] [address] Vijay Pat Anion gap [Moles/Vol] 13.4 mmol/L Normal [facility] Comment on above: Performed By: #### L IPID, CMP, FT3, TSH #### [facility] [address] [place] [address] Dr. Vijay Pat AST [Catalytic activity/Vol] 36 U/L Normal 15-37 [facility] Comment on above: Performed By: #### L IPID, CMP, FT3, TSH #### [facility] [address] [address] [address] Vijay Pat Bilirubin [Mass/Vol] 0.3 mg/dL Normal 0.2-1.0 [facility] Comment on above: Performed By: #### L IPID, CMP, FT3, TSH #### [facility] [address] [place] [address] Dr. Vijay Pat Calcium [Mass/Vol] 8.8 mg/dL Normal 8.5-10.1 [facility] Comment on above: Performed By: #### L IPID, CMP, FT3, TSH #### [facility] [address] [address] [address] Vijay Pat Chloride [Moles/Vol] 100 mmol/L Normal 98-107 [facility] Comment on above: Performed By: #### L IPID, CMP, FT3, TSH #### [facility] [address] [address] [address] Vijay Pat CO2 [Moles/Vol] 26.8 mmol/L Normal 21.0-32.0 [facility] Comment on above: Performed By: #### L IPID, CMP, FT3, TSH #### [facility] [address] [place] [address] Dr. Vijay Pat Creatinine [Mass/Vol] 1.05 mg/dL Normal 0.70-1.30 [facility] Comment on above: Performed By: #### L IPID, CMP, FT3, TSH #### [facility] [address] [place] [address] Dr. Vijay Pat EGFR-AF IRISH >60 Normal >=60 [facility] Comment on above: Performed By: #### L IPID, CMP, FT3, TSH #### [facility] [address] [place] [address] Dr. Vijay Pat EGFR-NON AF IRISH >60 Normal >=60 [facility] Comment on above: Performed By: #### L IPID, CMP, FT3, TSH #### [facility] [address] [place] [address] Dr. Vijay Pat Globulin (S) [Mass/Vol] 3.7 g/dL Normal [facility] Comment on above: Performed By: #### L IPID, CMP, FT3, TSH #### [facility] [address] [place] [address] Dr. Vijay Pat Glucose [Mass/Vol] 107 mg/dL Critically high 74-106 [facility] Comment on above: Performed By: #### L IPID, CMP, FT3, TSH #### [facility] [address] [place] [address] Dr. Vijay Pat Potassium [Moles/Vol] 4.2 mmol/L Normal 3.5-5.1 [facility] Comment on above: Performed By: #### L IPID, CMP, FT3, TSH #### [facility] [address] [place] [address] Dr. Vijay Pat Protein [Mass/Vol] 7.8 g/dL Normal 6.4-8.2 [facility] Comment on above: Performed By: #### L IPID, CMP, FT3, TSH #### [facility] [address] [place] [address] Dr. Vijay Pat Sodium [Moles/Vol] 136 mmol/L Normal 136-145 [facility] Comment on above: Performed By: #### L IPID, CMP, FT3, TSH #### [facility] [address] [place] [address] Dr. Vijay Pat Urea nitrogen [Mass/Vol] 19.0 mg/dL Critically high 7.0-18.0 [facility] Comment on above: Performed By: #### L IPID, CMP, FT3, TSH #### [facility] [address] [place] [address] Dr. Vijay Pat Urea nitrogen/Creatinine [Mass ratio] 18.1 mg/mg Normal [facility] Comment on above: Performed By: #### L IPID, CMP, FT3, TSH #### [facility] [address] [place] [address] Dr. Vijay Pat TSHon 05-23-2022 TSH 1.295 uIU/mL Normal 0.358-3.740 [facility] Comment on above: Performed By: #### L IPID, CMP, FT3, TSH #### [facility] [address] [place] [address] Dr. Vijay Pat US THYROIDon 01-11-2022 US [...] and isthmus nodule; present since at least 2016. TR 4: The [employer] TI-RADS committee's white paper recommendations for thyroid lesions classified as TR4 (moderately suspicious) are listed below: > 1.0 cm. Follow-up ultrasound in 1, 2, 3, and 5 years. > 1.5 cm. FNA. J. Am Geovany Radiol 2017;14:587-595. TR 3: The [employer] TI-RADS committee's white paper recommendations for thyroid lesions classified as TR3 (mildly suspicious) are listed below: > 1.5 cm. Follow-up ultrasound in 1, 3, and 5 years. > 2.5 cm. FNA. J. Am Geovany Radiol 2017;14:587-595. Electronically authenticated by: TIMOTHY MCGINNIS Date: 2022-01-11 16:[address] [facility] Covid-19 PCR ([facility])on 05-26 SARS-CoV-2 (COVID-19) RNA KIMBERLY+probe Ql (Unsp spec) Detected Critically abnormal NOT DETECTED [facility] Comment on above: Result Comment: This test is not yet approved or cleared by the [place] FDA. When there are no FDA-approved or cleared tests available, and other criteria are met, FDA can make tests available under an emergency access mechanism called an Emergency Use Authorization (EUA). The EUA for this test is supported by the [employer] Worker of Health and Human Service's (HHS's) declaration [...] Performed By: #### C VDTB, CVDAGS #### [facility] [address] [address] [address] Vijay Pat SYMPTOMATIC COVID-19 ANTIGEN on 06-10-2021 EUA Statement SEE BELOW Normal [facility] Comment on above: Result Comment: This test [...] revoked sooner. Performed By: #### C JENELLE, JEREMYS #### [facility] [address] [place] [address] Dr. Vijay Pat SARS-CoV-2 (COVID-19) RNA KIMBERLY+probe Ql (Unsp spec) Positive Critically abnormal NEGATIVE [facility] Comment on above: Result Comment: CONF IRMATION BY PCR PENDING PER CDC GUIDELINES/ SYMPTOMATIC PATIENT. Previously reported as: NEGATIVE On 06/10/2021 14:38 By [email or web address] Performed By: #### C JENELLE, JEREMYS #### [facility] [address] [place] [address] Dr. Vijay Pat Encounters Encounter Date Encounter Type Care Provider Facility Start: 09-30-2024 End: 09-30-2024 ambulatory Solomon CRONIN Facility:[facility] Start: 09-30-2024 End: 09-30-2024 Patient encounter procedure Solomon CRONIN [facility] Start: 08-12-2024 End: 08-12-2024 ambulatory Yosef Jacobson Facility:[facility] Start: 08-12-2024 End: 08-12-2024 Patient encounter procedure Solomon CRONIN [facility] Start: 07-03-2024 ambulatory Yosef Jacobson Facility:[facility] [place] Start: 05-24-2022 Encounter for genera l adult medical examination without abnormal findings DR YOSEF JACOBSON [facility] Start: 05-23-2022 End: 05-24-[address] [...] #### L IPID, CMP, FT3, TSH #### [facility] [address] [address] [address] Vijay Pat Payers Date Payer Category Payer Unknown [id number] 2.16.84 [id number] 1984 Unknown [id number] 2.16.84 [id number] 1984 Unknown [id number] 2.16.84 [id number] 1984 Unknown [id number] 2.16.84 [id number] 1984 Unknown [id number] 2.16.8 [id number] 1959 Private Health Insurance [id number] 1960 Self-pay [id number] 1960 Unknown [id number] Social History Date Type Detail Facility Tobacco smoking status No Smoking Status Entered [facility] ROI² Sex Assigned At Male [facility] Hospital Discharge instructions 07-03-2024 Note Date & Type Note Facility 07-03-2024 Hospital Discharg e instructions Follow Up Care 07/03/2024 15:50:59 With:ROSEANNE GUTIERREZ, Solomon El, URL Address: [facility] [address], [place] [address] [phone] When: Unknown [facility] Evaluation + Plan note Note Date & Type Note Facility Evaluation + Plan note No data available for this section [facility] Hospital Discharge instructions Note Date & Type Note Facility Hospital Discharge instructions No data available for this section [facility] Progress note Note Date & Type Note Facility Progress note No data available for this section [facility] Summary Purpose Family History No Family History Records Found No data available for this section No data available for this section No Family History Records Found Advance Directives No Advanced Directives Records FoundNo Advanced Directives Records Found Additional Source Comments (unrecognized sect ion and content) No Status Records FoundNo Status Records Found INFORMATION SOURCE (unrecogn ized section and content) DATE CREATED AUTHOR 05/25/[address] [facility] DATE CREATED AUTHOR AUTHOR'S ORGANIZ ATION 10/05/2024 [facility] FOR RECORDS PERTAINING TO PATIENTS WHO [...] BE BASED ON THE PRIMARY CLINICAL RECORDS. [facility] [email or web address]. provides no warranty or guarantee of the accuracy or completeness of information in this document.
[2025-02-05 04:07] LABS: Testosterone 924 ng/dL (264-916)
== END 2025-02-04 08:22 | disposition home or self-care (01) ==
LOC: LAB 08:23
PROVIDERS: PCP Family Medicine; Visit Provider Family Medicine
DX: E29.1 Testicular hypofunction (principal)
CPT/HCPCS: 36415; 84403

== ENCOUNTER 2025-02-14 08:59 | Outpatient (OUT) | payer OTHER, SELFPAY ==
--- OUTSIDE RECORDS SUMMARY | 2024-09-30 11:00 | XMS_ITS ---
Author Name Auto Generated Organization [facility] Care Team Providers Care Eye Care Professional Name Role Phone Ernie Ascencio Referring Unavailable Solomon CRONIN Attending Unavailable Solomon CRONIN Attending Unavailable PROBLEMS No Problem Records Found PROCEDURES No Procedure Records Found RESULTS No Result Records Found ALLERGIES No Allergies Records Found ENCOUNTERS ADMIT/DISCHARGE ACCOUNT NUMBER ADMITTING ENCOUNTER CLASS LOC ATION SOURCE 09/30/2024/ 5 [id number] [facility] 08/12/2024/ 4 [id number] [facility] [place] 07/03/2024 [id number] [facility] [place] PAYERS ENCOUNTER GUARANTOR PAYER SUBSCRIBER SOURCE 09/30/2024 MIKKI HERNANDEZDOB: [id number] [facility] 148Tel: [phone] Primary Insurance:MEDICAL MUTUALPolicy Number: [id number] Date:[id number] [address]ZX: MIKKI KEY [facility]
--- OUTSIDE RECORDS SUMMARY | 2025-02-04 05:15 | XMS_ITS ---
Author Organization [facility] [place] Address [address] [place] [address] Care Team Providers Care Retail Business Development Manager Name Role Phone Sonu Hola Primary Care Provider REASON FOR VISIT testosterone Encounters Encounter Location Date Provider Diagnosis [facility] [address] [place] [address] 02/04/2025 Hola Ascencio Testicular hypofunct ion E29.1 Assessments Encounter Date Diagnosis (ICD Code) Assessment Notes Treatment Notes Treatment Clinical Notes Section Notes 02/04/2025 Testicular hypofunction (ICD-10 - E29.1) Plan Of Treatment Next Appt Details Provider Name:Hola Ascencio, 09:00:00 AM, [address] [place], [address], Medications Administered Medication Instructions Date of Administration Dosage Notes Testosterone Cypionate 02/04/2025 0.8 mL Progress Notes * DAVID Demetrius ADOB:[birth year] (39 yo M)Acc No.[id number]:02/04/2025 Progress Note Patient: Demetrius GARCIA Provider: Yessica Ascencio ([facility])MD :1985 A ge:39 Y S ex:Male Date:02/04/2025 Phone: Address:[address] [place] [address]-[phone] Check In:08:39 AM ESTCheck O ut:08:57 AM EST Subjective: * Chief Complaints: * T estosterone * Active Problem List R00.0 Tachycardia, unspeci fied Modified On:02/09/2023 Status:confirmed R51 Headache Modified On:02/14/2023 Status:confirmed E03.9 Hypothyroid Modified On:02/09/2023 Status:confirmed R53.82 Chronic fatigue Modified On:02/09/2023 Status:confirmed R63.5 Weight gain Modified On:02/14/2023 Status:confirmed J20.9 Acute bronchitis Modified On:02/14/2023 Status:confirmed I10 Essential (primary) hypertension Modified On:02/09/2023 Status:confirmed 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 T esticular hypofunction - E29.1 (Primary) Plan: * Treatment: * Therapeutic Injections: Testosterone Cypionate 200mg : 0.8 mL (Route: Intramuscular) given by Bessie Monique SA on left gluteus (Testicular hypofunction) * Procedure Codes: 9 [id number] THERAP.INJ. OF MED. INTRAMUSCULAR OR [id number] TESTOST CYPIONATE 1MG * * Sign off status: Completed Visit Status: C HK (Check Out) true * Provider: Yessica Ascencio (TTC)MD Date: 0 02/04/2025 Generated for Jakob hassan/Tmoasz/Luis on: 0 02/14/2025 09:01 AM EDT
--- OUTSIDE RECORDS SUMMARY | 2025-02-05 14:37 | XMS_ITS ---
Author Organization [facility] [place] Address [address] [place] [address] Care Team Providers Care Talent Acquisition Lead Name Role Phone Hola Ascencio Primary Care Provider [phone] REASON FOR VISIT testosterone lab Medications Medication SIG (Take, Route, Frequency, Duration) Notes Start Date End Date Status Testosterone Cypionate 200 MG/ML INJECT 0.7 ML INTRAMUSCULARLY ONCE WEEKLY FOR 28 DAYS for 28 days 01/21/2025 Active Encounters Encounter Location Date Provider Diagnosis [facility] [address] [place] [address] 02/05/2025 Hola Ascencio Plan Of Treatment Medication Medication Name Sig Start Date Stop Date Notes Testosterone Cypionate 200 MG/ML INJECT 0.7 ML INTRAMUSCULARLY ONCE WEEKLY FOR 28 DAYS for 28 days 01/21/2025 Next Appt Details Provider Name:Hola Carrizales Sonu, 09:00:00 AM, [address] [place], [address], Progress Notes * Demetrius HERNANDEZ ADOB:[birth year] (39 yo M)Acc No.[id number]:02/05/2025 Patient: Davis GARCIADemetrius QUINTERO :1985 A ge:39 Y S ex:Male Phone: [facility] [facility] [address] [address] [address] * Refills Refill Testosterone Cypionate Solution, 200 MG/ML, INJECT 0.7 ML INTRAMUSCULARLY ONCE WEEKLY FOR 28 DAYS, 28 days, Refills=0 * true * Date: Generated for Jakob hassan/Tomasz/Luis on: 0 02/14/2025 09:01 AM EDT
--- OUTSIDE RECORDS SUMMARY | 2025-02-14 09:01 | XMS_ITS | Patient Health Record ---
Author Organization The [facility] in [place] Address [address] [place] [address] Care Team Providers Care Co Chairman Name Role Phone Hola Jacobson Primary Care Provider [phone] YOSEF JACOBSON Unavailable [phone] Allergies Allergen (clinical drug ingredient) Drug/Non Drug Allergy documented on EMR Reaction Allergy Type Onset Date Status codeine Codeine anaphylaxis Drug Allergy Activ e Results Component Value Reference Range Notes CBC AUTO DIFF Reviewed date:04/23/2024 06:18:55 PM Interpretation: Performing Lab: Notes/Report: [facility] , White Blood Count 7.8 4.0-11.0 10 3/uL Red Blood Count 5.65 4.70-6.10 10 6/uL Hemoglobin 17.5 14.0-18.0 g/dL Hematocrit 51.8 42.0-54.0 % Mean Corpuscular Volume 91.7 80.0-94.0 fL Mean Corpuscular Hemoglobin 31.0 25.9-34.0 pg Mean Corpuscular HGB Conc 33.8 29.9-35.2 g/dL Red Cell Distribution Width 13.3 11.0-15.0 % Platelet Count 252 150-450 10 3/uL Mean Platelet Volume 11.0 9.5-13.5 fL Neutrophils Percent Auto 69.5 43.0-75.0 % Lymphocytes Percent Auto 17.4 20.5-60.0 % Monocytes Percent Auto 10.1 1.7-12.0 % Eosinophils Percent Auto 1.0 0.9-7.0 % Basophils Percent Auto 1.2 0.2-2.0 % Immature Granulocytes Pct Auto 0.8 0.0-0.5 % Neutrophils Absolute Auto 5.4 1.4-6.5 10 3/uL Lymphocytes Absolute Auto 1.4 1.2-3.8 10 3/uL Monocytes Absolute Auto 0.8 0.3-0.8 10 3/uL Eosinophils Absolute Auto 0.1 0.0-0.7 10 3/uL Basophils Absolute Auto 0.1 0.0-0.1 10 3/uL Immature Granulocytes Abs Auto 0.06 0.00-0.03 10 3/uL Performing Lab: see note ML - [facility] LB Testosterone Reviewed date:02/05/2025 06:57:42 PM Interpretation: Performing Lab: Notes/Report: [facility] , Testosterone 924 264-916 ng/dL Adult male reference interval is based on a population of healthy nonobese males (BMI <30) between 19 and 39 years old. tran Grigsby.al. JCEM 2017,102;0282-3905. PMID: [id number]. Performed at: - [address] [id number] Property Condition Assessor: Robbi Carbajal PhD, Phone: [phone] Performing Lab: see note - [facility] LB TSH Reviewed date:04/23/2024 06:18:55 PM Interpretation: Performing Lab: Notes/Report: [facility] , Thyroid Stimulating Hormone 2.157 0.358-3.740 u IU/mL Performing Lab: see note - [facility] LB PROF 14(COMP METB) Reviewed date:04/23/2024 06:18:55 PM Interpretation: Performing Lab: Notes/Report: [facility] , Sodium 134 136-145 mmol/L Potassium 4.0 3.5-5.1 mmol/L Chloride 99 98-107 mmol/L Carbon Dioxide 26.8 21.0-32.0 mmol/L Anion Gap 12.2 Glucose 95 74-106 mg/dL Blood Urea Nitrogen 15.0 7.0-18.0 mg/dL Creatinine 1.08 0.70-1.30 mg/dL Estimated GFR ( Aviva >60 >=60 Estimated GFR (Non- Whitney >60 >=60 BUN Creatinine Ratio 13.9 Calcium 9.0 8.5-10.1 mg/dL Bilirubin Total 0.8 0.2-1.0 mg/dL Aspartate Amino Transferase 48 15-37 U/L Alanine Aminotransferase 54 16-63 U/L Alkaline Phosphatase 66 46-116 U/L Total Protein 7.5 6.4-8.2 g/dL Albumin Level 4.0 3.4-5.0 g/dL Globulin 3.5 Albumin Globulin Ratio 1.1 Performing Lab: see note ML - [facility] LB LIPID PROFILE Reviewed date:04/23/2024 06:18:55 PM Interpretation: Performing Lab: Notes/Report: [facility] , Triglycerides 93 <=150 mg/dL Cholesterol 151 <=200 mg/dL HDL Cholesterol 37 40-60 mg/dL > or =60 mg/dl - LOW CARDIOVASCULAR RISK <40 mg/dl - HIGH CARDIOVASCULAR RISK LDL Cholesterol Calculated 96.0 <100 mg/dl OPTIMAL 100-129 mg/dl NEAR OR ABOVE OPTIMAL 130-159 mg/dl BORDERLINE HIGH 160-189 mg/dl HIGH >190 mg/dl VERY HIGH VLDL CHOLESTEROL 18.6 Chol HDL Ratio 4.1 3.3 - 4.4 LOW RISK 4.4 - 7.1 AVERAGE RISK 7.1 - 11.0 MODERATE RISK >11.0 HIGH RISK Performing Lab: see note ML - [facility] FREE T4 Reviewed date:04/23/2024 06:18:55 PM Interpretation: Performing Lab: Notes/Report: [facility] , Free T4 1.12 0.76-1.46 ng/dL Performing Lab: see note ML - [facility] FREE T3 Reviewed date:04/23/2024 06:18:55 PM Interpretation: Performing Lab: Notes/Report: [facility] , Free T3 2.79 2.18-3.98 pg/mL Performing Lab: see note ML - [facility] LB Testosterone Reviewed date:02/22/2024 09:58:50 PM Interpretation: Performing Lab: [facility]Report: [facility] , Testosterone 576 264-916 ng/dL Adult male reference interval is based on a population of healthy nonobese males (BMI <30) between 19 and 39 years old. tran Grigsby.al. JCEM 2017,102;4409-7194. PMID: [id number]. Performed at: [address] [id number] Property Condition Assessor: Robbi Carbajal PhD, Phone: [phone] Performing Lab: see note [facility] LAB TESTING Reviewed date:09/01/2024 06:03:40 PM Interpretation: Performing Lab: Notes/Report: [id number] TESTOSTERONE FREE,DIRECT W/ TOTAL [facility] , Miscellaneous Test COMMENT . Test Ordered: [id number] Testosterone, Free+Total LC/MS Testosterone, Total, LC/MS 995.3 [H ] ng/dL Reference Range: 264.0-916.0 This [facility] LC/MS-MS method is currently certified by the CDC Hormone Standardization Program (HoSt). Adult male reference interval is based on a population of healthy nonobese males (BMI <30) between 19 and 39 years old. tran Grigsby.al. JCEM 2017,102;2891-9203. PMID: [id number]. This test was developed and its performance characteristics determined by [facility]. It has not been cleared or approved by the Food and Drug Administration. Free Testosterone(Direct) 33.9 [H ] pg/mL Reference Range: 8.7-25.1 Performed at: - [address] [id number] Property Condition Assessor: Viri Thurston MD, Phone: [phone] Performed at: [address] [id number] Property Condition Assessor: Robbi Carbajal PhD, Phone: [phone] Performing Lab: see note [facility] GLYCOHEMOGLOBIN A1C Reviewed date:04/23/2024 06:18:55 PM Interpretation: Performing Lab: Notes/Report: [facility] , Glycohemoglobin A1C 5.1 4.5-6.2 % ADA RECOMMENDED LIMIT 4.0 - 6.0 ADA THERAPEUTIC TARGET < 7.0 ACTION SUGGESTED > 7.0 Estimated Average Glucose 100 Performing Lab: see note - [facility] Reason For Referral Diagnosis 1 Encounter for other general counseling and advice on contraception (Z30.09) Referral Organization [facility] Referring Provider First Name Hola Referring Provider Last Name Sonu Referring Provider Speciality Family Med richy Referred Provider Solomon Schmid Referred Provider Specialty Urology Referral Priority Routine Medications Medication SIG (Take, Route, Frequency, Duration) Notes Start Date End Date Status hydroCHLOROthiazide 25 MG TAKE 1 TABLET BY MOUTH EVERY DAY IN THE MORNING FOR 90 DAYS for 90 Active Testosterone Cypionate 200 MG/ML INJECT 0.7 ML INTRAMUSCULARLY ONCE WEEKLY FOR 28 DAYS Q Week for 28 days 02/11/2025 Active Levothyroxine Sodium 150 MCG TAKE 1 TABL ET BY MOUTH EVERY DAY IN THE MORNING ON EMPTY STOMACH FOR 90 DAYS for 90 Active Lisinopril 40 MG TAKE 1 TABLET BY PALAK TH EVERY DAY FOR 90 DAYS for 90 Active Blood Pressure Monitor - as directed PRN Active Social History Tobacco Use: Social History Observation Description Date Details (start date - stop date) Never Smoker NA - NA Tobacco Use/Smoking Question Answer Notes Patient is a nonsmoker Alcohol Screen (Audit-C) Question Answer Notes Did you have a drink containing alcohol in the p ast year? No Points 0 Interpretation Negative AUDIT-C (Standard) Question Answer Notes Did you have a drink contain ing alcohol in the past year? Yes How often did you have six o r more drinks on one occasion in the past year? Less than monthly (1 point) How many drinks did you have on a typical day when you were drinking in the past year? 1 or 2 drinks (0 point) How often did you have a dri nk containing alcohol in the past year? Monthly or less (1 point) Points 2 Interpretation Negative Problems Problem Type SNOMED Code ICD Code Onset Dates Problem Status W/U Status Risk Notes Problem Essential hypertension (59127429) Essential (primary) hypertension (I10) Active confirmed Problem Non-toxic single thyroid nodule (829580709) Nontoxic single thyroid nodule (E04.1) Active confirmed Problem 460593005 Testicular hypofunction (E29.1) Active confirmed Problem Tachycardia (7550068) Tachycardia, unspecified (R00.0) Active confirmed Problem Headache (57934139) Headache (R51) Active confirmed Problem Hypothyroid (65323412) Hypothyroid (E03.9) Active confirmed Problem Chronic fatigue syndrome (92847584) Chronic fatigue (R53.82) Active confirmed Problem Weight gain (401975369) Weight gain (R63.5) Active confirmed Problem Acute bronchitis (31707534) Acute bronchitis (J20.9) Active confirmed Problem Well adult (889012994) Well adult (Z00.00) Active confirmed Problem Obese class II (968205860171324) BMI 38.0-38.9,adult (Z68.38) Active confirmed Problem Concussion with no loss of consciousness (disorder) (50231725) Concussion without loss of consciousness (S06.0X0A) Active confirmed Problem Disease caused by Severe acute respiratory syndrome coronavirus 2 (disorder) (377781065) COVID-19 virus infection (U07.1) Active confirmed Vital Signs Blood pressure diastolic 90 mm Hg 02/11/2025 Height 72 in 02/11/2025 Blood pressure systolic 122 mm Hg 02/11/2025 Weight 284.0 lbs 02/11/2025 BMI 38.51 kg/m2 02/11/2025 Encounters Encounter Location Date Provider Diagnosis [facility] [address] [place] [address] 10/08/2024 Hola [facility] [address] [place] [address] 11/12/2024 Hola deon [facility] [address] [facility] [place] [address] 12/17/2024 Hola Jacobson [facility] [address] [facility] [place] [address] 01/21/2025 Hola Jacobson [facility] [address] [facility] [place] [address] 01/28/2025 Hola Jacobson Testicular hypofunct ion E29.1 [facility] [address] [place] [address] 02/05/2025 Hola Jacobson [facility] [address] [facility] [place] [address] 03/27/2024 YOSEF JACOBSON [facility] [address] [facility] [place] [address] 04/23/2024 Hola Jacobson [facility] [address] [facility] [place] [address] 06/04/2024 Hola [facility] [address] [facility] [place] [address] 07/03/2024 Hola Jacobson Encounter for other general counseling and advice on contraception Z30.09 [facility] [address] [facility] [place] [address] 08/06/2024 Hola Hoy [facility] [address] [facility] [place] [address] 09/01/2024 Hola Hoy Testicular hypofunct ion E29.1 [facility] [address] [place] [address] 02/20/2024 YOSEF HOY Testicular hypofunct ion E29.1 [facility] [address] [facility] [place] [address] 02/22/2024 YOSEF HOY [facility] [address] [place] [address] 02/28/2024 YOSEF HOY [facility] [address] [place] [address] 03/22/2024 YOSEF HOY Wellness examination Z01.89 ; Hypothyroid E03.9 and Essential (primary) hypertension I10 [facility] [address] [facility] [place] [address] 12/17/2024 Hola Hoy Testicular hypofunct ion E29.1 [facility] [address] [place] [address] 02/28/2024 YOSEF HOY Well adult Z00.00 an d Testicular hypofunction E29.1 [facility] [address] [facility] [place] [address] 08/20/2024 Hola Hoy Testicular hypofunct ion E29.1 [facility] [address] [facility] [place] [address] 02/11/2025 Hola Hoy Testicular hypofunct ion E29.1 ; Hypothyroid E03.9 and Well adult Z00.00 [facility] [address] [facility] [place] [address] 01/28/2025 Hola Hoy Testicular hypofunct ion E29.1 [facility] [address] [facility] [place] [address] 02/04/2025 Hola Hoy Testicular hypofunct ion E29.1 [facility] [address] [facility] [place] [address] 12/24/2024 Hola Hoy Testicular hypofunct ion E29.1 [facility] [address] [facility] [place] [address] 12/31/2024 Hola Hoy Testicular hypofunct ion E29.1 [facility] [address] [facility] [place] [address] 01/08/2025 Hola Hoy Testicular hypofunct ion E29.1 [facility] [address] [facility] [place] [address] 01/14/2025 Hola Hoy Testicular hypofunct ion E29.1 [facility] [address] [facility] [place] [address] 01/21/2025 Hola Hoy Testicular hypofunct ion E29.1 [facility] [address] [facility] [place] [address] 11/04/2024 Hola Hoy Testicular hypofunct ion E29.1 [facility] [address] [facility] [place] [address] 11/12/2024 Hola Hoy Testicular hypofunct ion E29.1 [facility] [address] [facility] [place] [address] 11/19/2024 Hola Hoy Testicular hypofunct ion E29.1 [facility] [address] [facility] [place] [address] 11/26/2024 Hola Hoy Testicular hypofunct ion E29.1 [facility] [address] [facility] [place] [address] 12/03/2024 Hola Hoy Testicular hypofunct ion E29.1 [facility] [address] [facility] [place] [address] 12/10/2024 Hola Hoy Testicular hypofunct ion E29.1 [facility] [address] [facility] [place] [address] 09/16/2024 Hola Hoy Testicular hypofunct ion E29.1 [facility] [address] [facility] [place] [address] 10/01/2024 Hola Hoy Testicular hypofunct ion E29.1 [facility] [address] [facility] [place] [address] 10/08/2024 Hola Hoy Testicular hypofunct ion E29.1 [facility] [address] [facility] [place] [address] 10/15/2024 Hola Hoy Testicular hypofunct ion E29.1 [facility] [address] [facility] [place] [address] 10/22/2024 Hola Hoy Testicular hypofunct ion E29.1 [facility] [address] [facility] [place] [address] 10/29/2024 Hola Hoy Testicular hypofunct ion E29.1 [facility] [address] [facility] [place] [address] 07/30/2024 Hola Hoy Testicular hypofunct ion E29.1 [facility] [address] [facility] [place] [address] 08/06/2024 Hola Hoy Testicular hypofunct ion E29.1 [facility] [address] [facility] [place] [address] 08/13/2024 Hola Hoy Testicular hypofunct ion E29.1 [facility] [address] [facility] [place] [address] 08/27/2024 Hola Hoy Testicular hypofunct ion E29.1 [facility] [address] [facility] [place] [address] 09/03/2024 Hola Hoy Testicular hypofunct ion E29.1 [facility] [address] [facility] [place] [address] 09/10/2024 Hola Hoy Testicular hypofunct ion E29.1 [facility] [address] [facility] [place] [address] 06/18/2024 Hola Hoy Testicular hypofunct ion E29.1 [facility] [address] [facility] [place] [address] 06/25/2024 Hola Hoy Testicular hypofunct ion E29.1 [facility] [address] [facility] [place] [address] 07/03/2024 Hola Hoy Testicular hypofunct ion E29.1 [facility] [address] [facility] [place] [address] 07/09/2024 Hola Hoy Testicular hypofunct ion E29.1 [facility] [address] [facility] [place] [address] 07/16/2024 Hola Hoy Testicular hypofunct ion E29.1 [facility] [address] [facility] [place] [address] 07/23/2024 Hola Hoy Testicular hypofunct ion E29.1 [facility] [address] [facility] [place] [address] 05/07/2024 Hola Hoy Testicular hypofunct ion E29.1 [facility] [address] [facility] [place] [address] 05/14/2024 Hola Hoy Testicular hypofunct ion E29.1 [facility] [address] [facility] [place] [address] 05/21/2024 Hola Hoy Testicular hypofunct ion E29.1 [facility] [address] [facility] [place] [address] 05/28/2024 Hola Hoy Testicular hypofunct ion E29.1 [facility] [address] [facility] [place] [address] 06/05/2024 Hola Hoy Testicular hypofunct ion E29.1 [facility] [address] [facility] [place] [address] 06/11/2024 Hola Hoy Testicular hypofunct ion E29.1 [facility] [address] [place] [address] 03/20/2024 YOSEF HOY Testicular hypofunct ion E29.1 [facility] [address] [facility] [place] [address] 03/27/2024 Hola Hoy Testicular hypofunct ion E29.1 [facility] [address] [facility] [place] [address] 04/02/2024 Hola Hoy Testicular hypofunct ion E29.1 [facility] [address] [facility] [place] [address] 04/09/2024 Hola Hoy Testicular hypofunct ion E29.1 [facility] [address] [facility] [place] [address] 04/24/2024 Hola Hoy Testicular hypofunct ion E29.1 [facility] [address] [facility] [place] [address] 04/30/2024 Hola Hoy Testicular hypofunct ion E29.1 [facility] [address] [place] [address] 02/21/2024 YOSEF HOY Testicular hypofunct ion E29.1 [facility] [address] [place] [address] 03/06/2024 YOSEF HOY Testicular hypofunct ion E29.1 [facility] [address] [place] [address] 03/13/2024 YOSEF HOY Testicular hypofunct ion E29.1 Assessments Encounter Date Diagnosis (ICD Code) Assessment Notes Treatment Notes Treatment Clinical Notes Section Notes 02/21/2024 Testicular hypofunction (ICD-10 - E29.1) 02/28/2024 Well adult (ICD-10 - Z00.00) 02/28/2024 Testicular hypofunction (ICD-10 - E29.1) 03/06/2024 Testicular hypofunction (ICD-10 - E29.1) 03/13/2024 Testicular hypofunction (ICD-10 - E29.1) 03/20/2024 Testicular hypofunction (ICD-10 - E29.1) 03/27/2024 Testicular hypofunction (ICD-10 - E29.1) 04/02/2024 Testicular hypofunction (ICD-10 - E29.1) 04/09/2024 Testicular hypofunction (ICD-10 - E29.1) 04/24/2024 Testicular hypofunction (ICD-10 - E29.1) 04/30/2024 Testicular hypofunction (ICD-10 - E29.1) 05/07/2024 Testicular hypofunction (ICD-10 - E29.1) 05/14/2024 Testicular hypofunction (ICD-10 - E29.1) 05/21/2024 Testicular hypofunction (ICD-10 - E29.1) 05/28/2024 Testicular hypofunction (ICD-10 - E29.1) 06/05/2024 Testicular hypofunction (ICD-10 - E29.1) 06/11/2024 Testicular hypofunction (ICD-10 - E29.1) 06/18/2024 Testicular hypofunction (ICD-10 - E29.1) 06/25/2024 Testicular hypofunction (ICD-10 - E29.1) 07/03/2024 Testicular hypofunction (ICD-10 - E29.1) 07/09/2024 Testicular hypofunction (ICD-10 - E29.1) 07/16/2024 Testicular hypofunction (ICD-10 - E29.1) 07/23/2024 Testicular hypofunction (ICD-10 - E29.1) 07/30/2024 Testicular hypofunction (ICD-10 - E29.1) 08/06/2024 Testicular hypofunction (ICD-10 - E29.1) 08/13/2024 Testicular hypofunction (ICD-10 - E29.1) 08/20/2024 Testicular hypofunction (ICD-10 - E29.1) doing wel - just need levle checked 08/27/2024 Testicular hypofunction (ICD-10 - E29.1) 09/03/2024 Testicular hypofunction (ICD-10 - E29.1) 09/10/2024 Testicular hypofunction (ICD-10 - E29.1) 09/16/2024 Testicular hypofunction (ICD-10 - E29.1) 10/01/2024 Testicular hypofunction (ICD-10 - E29.1) 10/08/2024 Testicular hypofunction (ICD-10 - E29.1) 10/15/2024 Testicular hypofunction (ICD-10 - E29.1) 10/22/2024 Testicular hypofunction (ICD-10 - E29.1) 10/29/2024 Testicular hypofunction (ICD-10 - E29.1) 11/04/2024 Testicular hypofunction (ICD-10 - E29.1) 11/12/2024 Testicular hypofunction (ICD-10 - E29.1) 11/19/2024 Testicular hypofunction (ICD-10 - E29.1) 11/26/2024 Testicular hypofunction (ICD-10 - E29.1) 12/03/2024 Testicular hypofunction (ICD-10 - E29.1) 12/10/2024 Testicular hypofunction (ICD-10 - E29.1) 12/17/2024 Testicular hypofunction (ICD-10 - E29.1) 12/24/2024 Testicular hypofunction (ICD-10 - E29.1) 12/31/2024 Testicular hypofunction (ICD-10 - E29.1) 01/08/2025 Testicular hypofunction (ICD-10 - E29.1) 01/14/2025 Testicular hypofunction (ICD-10 - E29.1) 01/21/2025 Testicular hypofunction (ICD-10 - E29.1) 01/28/2025 Testicular hypofunction (ICD-10 - E29.1) 02/04/2025 Testicular hypofunction (ICD-10 - E29.1) 02/11/2025 Testicular hypofunction (ICD-10 - E29.1) 02/11/2025 Hypothyroid (ICD-10 - E03.9) 02/20/2024 Testicular hypofunction (ICD-10 - E29.1) 03/22/2024 Wellness examination (ICD-10 - Z01.89) 03/22/2024 Hypothyroid (ICD-10 - E03.9) 07/03/2024 Encounter for other general counseling and advice on contraception (ICD-10 - Z30.09) 09/01/2024 Testicular hypofunction (ICD-10 - E29.1) 01/28/2025 Testicular hypofunction (ICD-10 - E29.1) 03/22/2024 Essential (primary) hypertension (ICD-10 - I10) 02/11/2025 Well adult (ICD-10 - Z00.00) Plan Of Treatment Pending Test Test Name Order Date CMP (COMPLETE METABOLIC PANEL) 3 CMP (COMPLETE METABOLIC PANEL) 4 HEMOGLOBIN A1C (GLYCO) 02/10/2023 HEMOGLOBIN A1C (GLYCO) 02/11/2025 INSULIN, TOTAL 02/10/2023 LIPID PANEL (CHOL/TRIG/HDL/LDL) 02/11/20 23 LIPID PANEL (CHOL/TRIG/HDL/LDL) 02/12/20 25 CBC WITH DIFF 02/10/2023 T3 FREE, T4 FREE and TSH 03/22/2024 CBC AUTO DIFF 03/22/2024 GLYCOHEMOGLOBIN A1C 03/22/2024 LIPID PROFILE 03/22/2024 TESTOSTERONE, FREE,DIRECT, TOTAL 024 TESTOSTERONE, TOTAL 08/20/2024 TESTOSTERONE, TOTAL 05/03/2023 TESTOSTERONE, TOTAL 05/05/2023 TESTOSTERONE, TOTAL 06/28/2023 TESTOSTERONE, TOTAL 07/12/2023 TESTOSTERONE, TOTAL 12/12/2023 TESTOSTERONE, TOTAL 02/20/2024 TESTOSTERONE, TOTAL 02/11/2025 TESTOSTERONE, TOTAL 09/01/2024 TESTOSTERONE, TOTAL 01/28/2025 US THYROID 02/11/2025 THYROID PANEL (T4/TSH/FREE T3) 5 THYROID PANEL (T4/TSH/FREE T3) 3 PSA, SCREENING 02/11/2025 CMP (COMP MET KULKARNI) w/eGFR CKD-EPI 2024 CBC WITH DIFF 02/11/2025 Next Appt Details Provider Name:Hola Jacobson, 09:00:00 AM, [address] [place], [address], Insurance Providers Payer Name Payer Address Payer Phone Subscriber Number Group Number Insured Name Patient Relationship to Insured Coverage Start Date Coverage End Date MMO [employer] [address] [place] [address] [id number] Guerrero Self - patient is the insured Medications Administered Medication Instructions Date of Administration Dosage Notes Testosterone Cypionate 200mg 02/22/2023 0.5 mL Testosterone Cypionate 200mg 03/08/2023 0.5 mL Testosterone Cypionate 200mg 03/22/2023 0.5 mL Testosterone Cypionate 200mg 04/20/2023 100 mg Testosterone Cypionate 200mg 05/04/2023 1 Testosterone Cypionate 05/18/2023 1 mL Testosterone Cypionate 05/31/2023 1 mL Testosterone Cypionate 06/14/2023 1 mL Testosterone Cypionate 06/28/2023 1 mL Testosterone Cypionate 07/12/2023 200 mg Testosterone Cypionate 07/19/2023 0.6 mL Testosterone Cypionate 07/26/2023 0.6 mL Testosterone Cypionate 08/02/2023 0.6 mL Testosterone Cypionate 08/10/2023 0.6 mL Testosterone Cypionate 08/16/2023 0.6 mL Testosterone Cypionate 08/23/2023 0.6 mL Testosterone Cypionate 08/30/2023 0.6 mL Testosterone Cypionate 09/06/2023 0.6 mg Testosterone Cypionate 09/13/2023 0.6 mL Testosterone Cypionate 2023 0.6 mL Testosterone Cypionate 10/04/2023 0.6 mL Testosterone Cypionate 10/11/2023 0.6 mL Testosterone Cypionate 10/18/2023 0.6 mL Testosterone Cypionate 10/25/2023 0.6 mL Testosterone Cypionate 11/01/2023 0.6 mL Testosterone Cypionate 11/08/2023 0.6 mL Testosterone Cypionate 11/15/2023 0.6 mL Testosterone Cypionate 11/15/2023 0.6 mL Testosterone Cypionate 11/23/2023 0.6 mL Testosterone Cypionate 11/29/2023 0.6 mL Testosterone Cypionate 12/06/2023 0.6 mL Testosterone Cypionate 12/12/2023 0.6 mL Testosterone Cypionate 12/20/2023 0.6 mL Testosterone Cypionate 12/27/2023 0.8 mL Testosterone Cypionate 01/03/2024 0.8 mL Testosterone Cypionate 01/10/2024 0.8 mL Testosterone Cypionate 01/17/2024 0.8 mL Testosterone Cypionate 01/24/2024 0.8 mL Testosterone Cypionate 01/31/2024 0.8 mL Testosterone Cypionate 02/07/2024 0.8 mL Testosterone Cypionate 02/14/2024 0.8 mL Testosterone Cypionate 02/21/2024 0.8 mL Testosterone Cypionate 02/28/2024 0.8 mL Testosterone Cypionate 03/06/2024 0.8 mg Testosterone Cypionate 03/13/2024 0.8 mL Testosterone Cypionate 03/20/2024 0.8 mL Testosterone Cypionate 03/27/2024 0.8 mL Testosterone Cypionate 04/02/2024 0.8 mL Testosterone Cypionate 04/09/2024 0.8 mL Testosterone Cypionate 04/24/2024 0.8 mL Testosterone Cypionate 04/30/2024 0.8 mL Testosterone Cypionate 05/07/2024 0.8 mL Testosterone Cypionate 05/14/2024 0.8 mL Testosterone Cypionate 05/21/2024 0.8 mL Testosterone Cypionate 05/28/2024 0.8 mL Testosterone Cypionate 06/05/2024 0.8 mL Testosterone Cypionate 06/11/2024 0.8 mL Testosterone Cypionate 06/18/2024 0.8 mL Testosterone Cypionate 06/25/2024 0.8 mL Testosterone Cypionate 07/03/2024 0.8 mL Testosterone Cypionate 07/09/2024 0.8 mL Testosterone Cypionate 07/16/2024 0.8 mL Testosterone Cypionate 07/23/2024 0.8 mL Testosterone Cypionate 07/30/2024 0.8 mL Testosterone Cypionate 08/06/2024 0.8 mL Testosterone Cypionate 08/13/2024 0.8 mL Testosterone Cypionate 08/20/2024 0.8 mL Testosterone Cypionate 08/27/2024 0.8 mL Testosterone Cypionate 09/03/2024 0.6 mL Testosterone Cypionate 09/10/2024 0.8 mg Testosterone Cypionate 09/16/2024 0.8 mL Testosterone Cypionate 10/01/2024 0.8 mL Testosterone Cypionate 10/08/2024 0.8 mL Testosterone Cypionate 10/15/2024 0.8 mL Testosterone Cypionate 10/22/2024 0.8 mL Testosterone Cypionate 10/29/2024 0.8 mL Testosterone Cypionate 11/04/2024 0.8 mL Testosterone Cypionate 11/12/2024 0.6 mL Testosterone Cypionate 11/19/2024 0.8 mL Testosterone Cypionate 11/26/2024 0.8 mL Testosterone Cypionate 12/03/2024 0.8 mL Testosterone Cypionate 12/10/2024 0.8 mL Testosterone Cypionate 12/17/2024 0.8 mL Testosterone Cypionate 12/24/2024 0.8 mL Testosterone Cypionate 12/31/2024 0.8 mL Testosterone Cypionate 01/08/2025 0.8 mL Testosterone Cypionate 01/14/2025 0.8 mg Testosterone Cypionate 01/21/2025 0.8 mL Testosterone Cypionate 01/28/2025 0.8 mL Testosterone Cypionate 02/04/2025 0.8 mL Testosterone Cypionate 02/11/2025 0.7 mL Medical (General) History Medical History History ICD Code Nontoxic single thyroid nodule E04.1 Tachycardia, unspecified R00.0 Essential (primary) hypertension I10 Concussion without loss of consciousness S06.0X0A Hypothyroid E03.9 Chronic fatigue R53.82 Headache R51 Skull Fracture Fracture 8 ribs right side COVID-19 virus infection U07.1 Acute bronchitis J20.9 BMI 38.0-38.9,adult Z68.38 Weight gain R63.5 Surgical History Surgery Date(Month/Year) Tonsillectomy Bilat knee surgery- Meniscus
--- NOTE | 2025-02-14 09:02 | US_ITS ---
[address] [address] Patient Name: MIKKI HERNANDEZ MRN: [id number] date: 1985 Sex: M Assigned Patient Location: [place] Current Patient Location: Accession/Order Number: [id number] Exam Date: 02/14/2025 14:58 Report Date: 02/14/2025 15:00 At the request of: YOSEF JACOBSON MD Procedure: US thyroid Thyroid Ultrasound HISTORY: Hypothyroidism. COMPARISON: None The RIGHT lobe measures 3.2 x 1.4 x 1.6cm. LEFT lobe measures 3.9 x 1.6 x 1.1 cm. Isthmus has an AP dimension of 0.5cm. Heterogeneous thyroid parenchyma. No discrete nodule identified.. No microcalcifications identified. Symmetric blood flow of the thyroid gland identified. US/US thyroid IMPRESSION: No thyroid nodules. Impression dictated by: Evin Askew M.D. 02/14/2025 3:00 PM Dictation Location: [facility]MyBest Electronically authenticated by: [id number] Y Date: 02/14/2025 15:00
== END 2025-02-14 09:00 | disposition home or self-care (01) ==
LOC: US 08:59
PROVIDERS: PCP Family Medicine; Visit Provider Family Medicine
DX: E29.1 Testicular hypofunction (principal); E03.9 Hypothyroidism, unspecified
CPT/HCPCS: 76536

== ENCOUNTER 2025-09-02 08:37 | Outpatient (OUT) | payer OTHER, SELFPAY ==
--- OUTSIDE RECORDS SUMMARY | 2025-09-02 09:25 | XMS_ITS | CCD ---
Author Organization [facility] Care Team Providers Care Call Center Consultant Name Role Phone INDIRA, DR NAVAS Admitting [...] Consulting Unavailable CIERRADANETTE DODSON Primary Care Unavailable HOY, DR NAVAS Admitting Unavailable HOY, DR NAVAS Admitting Unavailable HOY, DR NAVAS Attending Unavailable CIERRADANETTE Primary Care Unavailable Yosef Ascencio Referring Unavailable Solomon CRONIN Attending Unavailable Solomon CRONIN Attending Unavailable Problems Active Problems Problem ClassificationProblemDateDocumented DateEpisodic/ChronicMalaise and fatigue (1 source)Other fatigue; Translations: [OTHER FATIGUE]Onset: 58-53-8195Atnpuzab Other aftercare (1 source)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; Translations: [OTH SNF CURRENT DRUG THERAPY]Onset: 34-63-3135TxxfvjcyYzwre screening for suspected conditions (not mental disorders or infectious disease) (2 sources)Encounter for screening for malignant neoplasm of colon; Translations: [Encounter for screening formalignant neoplasm of prostate]Onset: 21-46-1282LbpudxwcJvprhkw disorders (5 sources)Hypothyroidism, unspecified; Translations: [Nontoxic single thyroid nodule]Onset: 84-25-8436UkkqzukSheyqgeppwzs (2 sources)CONTACT W/AND (SUSP) EXPOS COVID-19; Translations: [CONTACT W/AND (SUSP) EXPOS COVID-19]Onset: 40-87-8055Lxecj infection (1 source)COVID-19; Translations: [COVID-19]Onset: 06-27-2021 Past or Other Problems Problem ClassificationProblemDateDocumented DateEpisodic/ChronicUnclassified (1 source)CONTACT W/AND (SUSP) EXPOS COVID-19; Translations: [CONTACT W/AND (SUSP) EXPOS COVID-19]Onset: 06-10-2021 Results Test NameValueInterpretationReference RangeFacilityT4 LABCORPon 14-21-0631L3 [Mass/Vol]9.9 ug/dLNormal4.5-12.0The [facility] HospitalComment on above:Performed By: #### T4LC #### [facility] [address] [place] [address] Dr. Vijay Tomlinson AUTO DIFFon 52-97-5615EQKB #0.1 103/ulNormal0.0-0.1[facility] HospitalComment on above:Performed By: #### CBC #### [facility] [address] [place] [address] Dr. Vijay PatBasophils/100 WBC (Bld)1.1 %Normal0.2-2.0[facility] Comment on above:Performed By: #### CBC #### [facility] [address] [place] [address] Dr. Vijay Julien #0.2 103/ulNormal0.0-0.7The [facility] HospitalComment on above: Performed By: #### CBC #### [facility] [address] [place] [address] Dr. Vijay Desaiosinophils/100 WBC (Bld)2.4 %Normal0.9-7.0[facility] Comment on above:Performed By: #### CBC #### [facility] [address] [place] [address] Dr. Vijay Desairythrocyte distribution width (RBC) [Ratio]12.3 %Loblbp21.0-15.0 [facility] HospitalComment on above:Performed By: #### CBC #### [facility] [address] [place] [address] Dr. Yilan ChangHematocrit (Bld) [Volume fraction]45.2 %Mnqqpe32.0-54.0The [facility] HospitalComment on above:Performed By: #### CBC #### [facility] [address] [place] [address] Dr. Vijay PatHemoglobin (Bld) [Mass/Vol]15.3 g/lCDehueh23.0-18.0The [place] HospitalComment on above:Performed By: #### CBC #### [facility] [address] [place] [address] Dr. Vijay PatIG #0.03 10e3/ulNormal0.00-0.03The [facility] HospitalComment on above:Performed By: #### CBC #### [facility] [address] [place] [address] Dr. Vijay PatIG %0.4 %Normal0.0-0.5The [facility] HospitalComment on above: Performed By: #### CBC #### [facility] [address] [place] [address] Dr. Vijay Tolbert #1.6 103/ulNormal1.2-3.8The [facility] HospitalComment on above:Performed By: #### CBC #### [facility] [address] [place] [address] Dr. Vijay Garciamphocytes/100 WBC (Bld)22.6 %Gqzrye49.5-60.0The [facility] HospitalComment on above:Performed By: #### CBC #### [facility] [address] [place] [address] Dr. Vijay PatMANUAL DIFF REQNONormalThe Grant HospitalComment on above: Performed By: #### CBC #### [facility] [address] [place] [address] Dr. Vijay Gamble (RBC) [Entitic mass]30.8 qqFdgbjp32.9-34.0The [facility] HospitalComment on above:Performed By: #### CBC #### [facility] [address] [place] [address] Dr. Vijay Roland (RBC) [Mass/Vol]33.8 g/zOAcrwtt21.9-35.2The [facility] HospitalComment on above:Performed By: #### CBC #### [facility] [address] [place] [address] Dr. Vijay Roland (RBC) [Entitic vol]90.9 kIUjhqih92.0-94.0The [facility] HospitalComment on above:Performed By: #### CBC #### [facility] [address] [place] [address] Dr. Vijay Salazar #0.8 103/ulNormal0.3-0.8The [facility] HospitalComment on above:Performed By: #### CBC #### [facility] [address] [place] [address] Dr. Vijay Trejoocytes/100 WBC (Bld)12.0 %Normal1.7-12.0[facility] Comment on above:Performed By: #### CBC #### [facility] [address] [place] [address] Dr. Vijay Stacy #4.3 103/ulNormal1.4-6.5The [facility] HospitalComment on above:Performed By: #### CBC #### [facility] [address] [place] [address] Dr. Vijay Germanutrophils/100 WBC (Bld)61.5 %Ofxmoy86.0-75.0The [facility] HospitalComment on above:Performed By: #### CBC #### [facility] [address] [place] [address] Dr. Vijay Cuevaslet mean volume (Bld) [Entitic vol]10.3 fLNormal9.5-13.5The [facility] HospitalComment on above:Performed By: #### CBC #### [facility] [address] [place] [address] Dr. Vijay PatPLT246 103/yuUwtplv314-951Nys Grant HospitalComment on above: Performed By: #### CBC #### [facility] [address] [place] [address] Dr. Vijay PatRBC4.97 106/ulNormal4.70-6.10The [facility] HospitalComasc[facility] on above:Performed By: #### CBC #### [facility] [address] [place] [address] Dr. Vijay PatWBC7.0 103/ulNormal4.0-11.0The [facility] on above: Performed By: #### CBC #### [facility] [address] [place] [address] Dr. Vijay PatFREE T3on 59-41-8858YZQG T32.93 pg/mlLNormal2.18-3.98The [facility] on above:Performed By: #### LIPID, CMP, FT3, TSH #### [facility] [address] [place] [address] Dr. Vijay PatGLYCOHEMOGLOBIN A1Con 21-66-9799RBC RECOMMENDATIONSEE BELOWAultman Orrville HospitalComascension borg[facility] alle[facility] hospital on above:Result Comment: ADA RECOMMENDED LIMIT 4.0 - 6.0 ADA THERAPEUTIC TARGET < 7.0 ACTION SUGGESTED > 7.0Performed By: #### A1C #### [facility] [address] [place] [address] Dr. Vijay PatGlucose [Mass/Vol]111 mg/dLNoWilson Street Hospital on above:Performed By: #### A1C #### [facility] [address] [place] [address] Dr. Vijay PatHbA1c (Bld) [Mass fraction]5.5 %Normal4.5-6.2The [facility] on above:Performed By: #### A1C #### [facility] [address] [place] [address] Dr. Vijay PatLIPID PROFILEon 72-38-1616NWQZ-HDL RATIO NORMSEE [facility]Com[facility] on above:Result Comment: 3.3 - 4.4 LOW RISK 4.4 - 7.1 AVERAGE RISK 7.1 - 11.0 MODERATE RISK >11.0 HIGH RISKPerformed By: #### LIPID, CMP, FT3, TSH #### [facility] [address] [address] [address] Vijay PatCholesterol [Mass/Vol]180 mg/dLNormal<=200[facility] Comment on above:Performed By: #### LIPID, CMP, FT3, TSH #### [facility] [address] [address] [address] Vijay PatCholesterol in HDL [Mass/Vol]35 mg/dLCritically fjs20-19Hrb [facility] HospitalComment on above:Performed By: #### LIPID, CMP, FT3, TSH #### [facility] [address] [address] [address] Vijay Aragonesterol in LDL [Mass/Vol]128.4 mg/dLNoSelect Medical Cleveland Clinic Rehabilitation Hospital, Edwin ShawComment on above:Performed By: #### LIPID, CMP, FT3, TSH #### [facility] [address] [place] [address] Dr. Vijay Aragonesterjosé miguel.total/Cholesterol in HDL [Mass ratio]5.1 {ratio} NormalThe Grant HospitalComment on above:Performed By: #### LIPID, CMP, FT3, TSH #### [facility] [address] [address] [address] Vijay Valera NORMAL> or = 60 mg/dl - LOW CARDIOVASCULAR RISK <40 mg/dl - HIGH CARDIOVASCULAR RISKNorwalk Memorial HospitalComment on above:Performed By: #### LIPID, CMP, FT3, TSH #### [facility] [address] [place] [address] Dr. Vijay PatLDL CALC NORMALSEE BELOWNoSelect Medical Cleveland Clinic Rehabilitation Hospital, Edwin ShawComment on above:Result Comment: <100 mg/dl OPTIMAL 100 - 129 mg/dl NEAR OR ABOVE OPTIMAL 130 - 159 mg/dl BORDERLINE HIGH 160 - 189 mg/dl HIGH >190 mg/dl VERY HIGH Performed By: #### LIPID, CMP, FT3, TSH #### [facility] [address] [place] [address] Dr. Vijay PatTriglyceride [Mass/Vol]83 mg/dLNormal<=150[facility] Comment on above:Performed By: #### LIPID, CMP, FT3, TSH #### [facility] [address] [place] [address] Dr. Vijay PatVLDL CALC16.6 mg/dLNormalThe [facility] HospitalComment on above: Performed By: #### LIPID, CMP, FT3, TSH #### [facility] [address] [place] [address] Dr. Vijay Powell 14(COMP METB)on 80-93-9619Xnxihtg [Mass/Vol]4.1 g/dLNormal 3.4-5.0The [facility] HospitalComment on above:Performed By: #### LIPID, CMP, FT3, TSH #### [facility] [address] [place] [address] Dr. Vijay PatAlbumin/Globulin [Mass ratio]1.1 {ratio}NormalThe Grant HospitalComment on above:Performed By: #### LIPID, CMP, FT3, TSH #### [facility] [address] [place] [address] Dr. Vijay Hinojosa [Catalytic activity/Vol]83 U/DCiglhl04-379Nbc [facility] HospitalComment on above:Performed By: #### LIPID, CMP, FT3, TSH #### [facility] [address] [place] [address] Dr. Vijay Hoyos [Catalytic activity/Vol]41 U/LZggjmz16-13Zgx [facility] HospitalComment on above:Performed By: #### LIPID, CMP, FT3, TSH #### [facility] [address] [place] [address] Dr. Vijay Avilez gap [Moles/Vol]13.4 mmol/LNormalThe [facility] Comment on above:Performed By: #### LIPID, CMP, FT3, TSH #### [facility] [address] [place] [address] Dr. Vijay Solorzano [Catalytic activity/Vol]36 U/LEfkule53-88Jtn [facility] HospitalComment on above:Performed By: #### LIPID, CMP, FT3, TSH #### [facility] [address] [place] [address] Dr. Vijay PatBilirubin [Mass/Vol]0.3 mg/dLNormal0.2-1.0[facility] Comment on above:Performed By: #### LIPID, CMP, FT3, TSH #### [facility] [address] [place] [address] Dr. Vijay PatCalcium [Mass/Vol]8.8 mg/dLNormal8.5-10.1[facility] Comment on above:Performed By: #### LIPID, CMP, FT3, TSH #### [facility] [address] [place] [address] Dr. Vijay PatChloride [Moles/Vol]100 mmol/OPumgbt98-196TleMansfield Hospital Comment on above:Performed By: #### LIPID, CMP, FT3, TSH #### [facility] [address] [place] [address] Dr. Vijay PatCO2 [Moles/Vol]26.8 mmol/MDcsclk29.0-32.0[facility] Comment on above:Performed By: #### LIPID, CMP, FT3, TSH #### [facility] [address] [place] [address] Dr. Vijay PatCreatinine [Mass/Vol]1.05 mg/dLNormal0.70-1.30[facility] HospitalComment on above:Performed By: #### LIPID, CMP, FT3, TSH #### [facility] [address] [place] [address] Dr. Vijay DesaiGFR-AF GHANAIAN>60Normal>=60The [facility] HospitalComment on above:Performed By: #### LIPID, CMP, FT3, TSH #### [facility] [address] [place] [address] Dr. Vijay DesaiGFR-NON AF GHANAIAN>60Normal>=60The [facility] HospitalComment on above:Performed By: #### LIPID, CMP, FT3, TSH #### [facility] [address] [place] [address] Dr. Vijay PtaGlobulin (S) [Mass/Vol]3.7 g/dLNormRegency Hospital Cleveland EastComment on above:Performed By: #### LIPID, CMP, FT3, TSH #### [facility] [address] [address] [address] Vijay PatGlucose [Mass/Vol]107 mg/dLCritically unsz29-795Jjr [facility] HospitalComment on above:Performed By: #### LIPID, CMP, FT3, TSH #### [facility] [address] [address] [address] Vijay PatPotassium [Moles/Vol]4.2 mmol/LNormal3.5-5.1The [facility] Comment on above:Performed By: #### LIPID, CMP, FT3, TSH #### [facility] [address] [address] [address] Vijay PatProtein [Mass/Vol]7.8 g/dLNormal6.4-8.2[facility] Comment on above:Performed By: #### LIPID, CMP, FT3, TSH #### [facility] [address] [address] [address] Vijay PatSodium [Moles/Vol]136 mmol/UUidyrx074-689Lqk [facility] Comment on above:Performed By: #### LIPID, CMP, FT3, TSH #### [facility] [address] [address] [address] Vijay PatUrea nitrogen [Mass/Vol]19.0 mg/dLCritically high7.0-18.0The [facility] HospitalComment on above:Performed By: #### LIPID, CMP, FT3, TSH #### [facility] [address] [address] [address] Vijay PatUrea nitrogen/Creatinine [Mass ratio]18.1 mg/mgNoSelect Medical Cleveland Clinic Rehabilitation Hospital, Edwin ShawComment on above:Performed By: #### LIPID, CMP, FT3, TSH #### [facility] [address] [place] [address] Dr. Vijay Zuniga 15-41-8350NXW5.295 uIU/mLNormal0.358-3.740The [facility] HospitalComment on above:Performed By: #### LIPID, CMP, FT3, TSH #### [facility] [address] [address] [address] Vijay Olivas THYROIDon 34-03-2250PO THYROIDEXAMINATION: US THYROID HISTORY: Uninodular goiter COMPARISON: Ultrasound [...] since at least 2016. TR 4: The [employer] TI-RADS committee's white paper recommendations for thyroid lesions classified as TR4 (moderately suspicious) are listed below: > 1.0 cm. Follow-up ultrasound in 1, 2, 3, and 5 years. > 1.5 cm. FNA. J. Am Geovany Radiol 2017;14:587-595. TR 3: The [employer] TI-RADS committee's white paper recommendations for thyroid lesions classified as TR3 (mildly suspicious) are listed below: > 1.5 cm. Follow-up ultrasound in 1, 3, and 5 years. > 2.5 cm. FNA. J. Am Geovany Radiol 2017;14:587-595. Electronically authenticated by: TIMOTHY MCGINNIS Date: 2022-01-11 16:25NoSelect Medical Cleveland Clinic Rehabilitation Hospital, Edwin ShawCovid-19 PCR (CVDTBH)on 66-90-6751BQHW-CoV-2 (COVID-19) RNA KIMBERLY+probe Ql (Unsp spec)DetectedCritically abnormalNOT DETECTEDThe Grant HospitalComment on above:Result Comment: This test is not yet approved or cleared by the [place] FDA. When there are no FDA-approved or cleared tests available, and other criteria are met, FDA can make tests available under an emergency access mechanism called an Emergency Use Authorization (EUA). The EUA for this test is supported by the [place] Coordinator of Health and Human Service's (HHS's) declaration [...] no longer be used). Performed By: #### JEREMY MCDONALDS #### [facility] [address] [place] [address] Dr. Vijay BaconMATIC COVID-19 ANTIGENon 35-09-5849MKA StatementSEE BELOW NormalThe [facility] HospitalComascension borg[facility] allegan hospital on above:Result Comment: This test has not been FDA [...] declaration is terminated or authorization is revoked sooner.Performed By: #### ANKUSH MCDONALD #### [facility] [address] [place] [address] Dr. Vijay Stahl-CoV-2 (COVID-19) RNA KIMBERLY+probe Ql (Unsp spec)Positive Critically abnormalNEGATIVEThe [facility] HospitalComascension borg[facility] hospital on above:Result Comment: CONFIRMATION BY PCR PENDING PER CDC GUIDELINES/ SYMPTOMATIC PATIENT. Previously reported as: NEGATIVE On 06/10/2021 14:38 By [id number] By: #### JEREMY MCDONALDS #### [facility] [address] [place] [address] Dr. Vijay Pat Encounters Encounter DateEncounter TypeCare ProviderFacilityStart: 09-30-2024 End: 52-50-7766qolbvwyjhgGzdlzho R ROSEANNEFacility:[place] Centervilletart: 09-30-2024 End: 12-36-7127Rirqkre encounter procedureSolomon Sienna CRONIN [facility] start: 08-12-2024 End: 86-74-7139txgqonlsgaQldezdq HoyFacility:[facility]ueStart: 08-12-2024 End: 20-81-5966Kfemjnv encounter procedurePajasmyn Sienna CRONIN [facility] start: 03-39-0139zjyhbheoxyPmmluwp HoyFacility:EU Centervilletart: 52-82-4168Iisgimiun for general adult medical examination without abnormal findingsDR YOSEF Car [place] [facility]Start: 05-23-2022 End: 81-50-3094snctymftexYT YOSEF HOYFacility:T2Nnhci: 05-23-2022 End: 50-86-8364Vzgoyhvxk for general adult medical examination without abnormal findingsDR YOSEF HOYFacility:W3Hwjrd: 25-03-3061edxxdlqlilWO YOSEF HOY Facility:J2Gllvv: 01-11-2022 End: 62-17-6181ewybzaymfjYL YOSEF HOYFacility:Z0Zqahn: 06-10-2021 End: 53-02-6078tbdkurtdkvQS YOSEF HOYFacility:H1 Procedures DateProcedureProcedure DetailPerforming ClinicianStart: 30-89-5455AMD screening DR YOSEF Cai on above:Performed By: #### LIPID, CMP, FT3, TSH #### [facility] [address] [place] [address] Dr. Vijay Mercedes DatePayer CategoryPayerKindred Healthcarey [id number] 2.16.840.1.695111.3.579.2.30831-60-8581Pcjvtvj Health [id number] 04-79-1880Elhr-[id number] Social History DateTypeDetailFacilityTobacco smoking statusNo Smoking Status [facility] Hospital Discharge instructions 07-03-2024 Note Date & SqmlGpymZpsgpmqd77-58-5275 Hospital Discharge instructions Follow Up Care 07/03/2024 15:50:59 With:ROSEANNE GUTIERREZ, Solomon El, URL Address: [facility] [address], [place] [phone] When: Unknown [facility] Evaluation + Plan note Note Date & TypeNoteFacilityEvaluation + Plan note No data available for this section [facility] Discharge instructions Note Date & TypeNoteFacilityHospital Discharge instructions No data available for this section [facility] Progress note Note Date & TypeNoteFacilityProgress note No data available for this section [facility] Summary Purpose Family History No Family History [...] and content) DATE CREATED AUTHOR 05/25/2022 [facility] DATE CREATED AUTHOR AUTHOR'S ORGANIZ ATION 10/05/2024 [facility] FOR RECORDS PERTAINING TO PATIENTS WHO ARE [...] BE BASED ON THE PRIMARY CLINICAL RECORDS. [facility] [employer] [facility] provides no warranty or guarantee of the accuracy or completeness of information in this document.
== END 2025-09-02 08:38 | disposition home or self-care (01) ==
LOC: LAB 08:38
PROVIDERS: PCP Family Medicine; Visit Provider Family Medicine
DX: E29.1 Testicular hypofunction (principal)
CPT/HCPCS: 36415; 84403